=== PATIENT | female | born 1990 | race African-American/Black ===

== ENCOUNTER 2020-06-07 21:21 | Emergency (ER) | payer MEDICARE, OTHER ==
[~2020-06-07] VITALS: Ht 170.2 cm; Wt 67.3 kg
[~2020-06-07 21:21] MED LIST: CETI-89 PO; CHOL500045 PO; DIVA-85 PO; FLUT16H NASAL; FOLI-130 PO; HYDR500 PO; MULT-29 PO; QUET25TA PO; QUET50TA PO
[2020-06-07] MEDS ORDERED: MORP60TA49 PO (22:08)
[2020-06-07 22:43] LABS: EOSINOPHILS % (AUTO) 0.9 % (1.0-6.0); HEMOGLOBIN 11.6 g/dL (12.0-16.0); LYMPHOCYTES # (AUTO) 3.3 K/uL (1.0-4.8); LYMPHOCYTES % (AUTO) 33.3 % (22.0-44.0); MEAN CORPUSCULAR HEMOGLOBIN 30.1 pg (26.0-34.0); MEAN CORPUSCULAR HGB CONC 33.2 G/dL (31.0-37.0); MEAN CORPUSCULAR VOLUME 91 fL (80-100); MONOCYTES # (AUTO) 0.7 K/uL (0.1-1.0); MONOCYTES % (AUTO) 7.5 % (2.0-9.0); NEUTROPHILS # (AUTO) 5.7 K/uL (1.8-7.7); NEUTROPHILS % (AUTO) 57.3 % (40.0-70.0); PLATELET COUNT (AUTO) 304 K/uL (150-450); RED BLOOD CELL COUNT(AUTO) 3.85 MIL/uL (4.00-5.20); RED CELL DISTRIBUTION WIDTH 16.4 % (11.5-14.5); RETICULOCYTE % (AUTO) 6.6 % (0.5-2.3)
[2020-06-07 22:53] LABS: ANION GAP 7 mmol/L (8-16); CALCIUM, TOTAL 8.8 mg/dL (8.8-10.5); CARBON DIOXIDE 27 mmol/L (22-29); CHLORIDE 107 mmol/L (98-107); GLOMERULAR FILTR. RATE CALC > 60 mL/min (>60); GLUCOSE,RANDOM 91 mg/dL (70-110); POTASSIUM 3.8 mmol/L (3.5-5.1); SODIUM SERUM 141 mmol/L (136-145); UREA NITROGEN, BLOOD 10 mg/dL (7-18)
[2020-06-07] MEDS ORDERED: MORPHINE SULFATE 4 MG/ML SYRINGE IVP ONE (23:00)
[2020-06-07 23:04] LABS: COVID AG,FIA SOURCE NASOPHARYNGEAL
[2020-06-07 23:06] LABS: ALANINE AMINOTRANSFERASE 19 U/L (12-78); ALBUMIN 3.8 g/dL (3.4-5.0); ALKALINE PHOSPHATASE 79 U/L (46-116); ASPARTATE AMINOTRANSFERASE 20 U/L (15-37); BILIRUBIN,TOTAL 4.2 mg/dL (0.1-1.0); HCG,QUANTITATIVE 1 mIU/mL (0-6); TOTAL PROTEIN, SERUM 7.7 g/dL (6.4-8.2)
[2020-06-07] MEDS ORDERED: DEXTROSE 5%-0.9% SODIUM CHL 1,000 ML IV ONE (23:15)
[2020-06-07] MEDS ORDERED: DEXTROSE 5%-0.45% SODIUM CHL 1,000 ML IV ONE (23:45)
[2020-06-08] MEDS ORDERED: MORPHINE SULFATE 10 MG/ML SYRINGE IVP ONE
[2020-06-08] MEDS ORDERED: KETOROLAC TROMETHAMINE 30 MG/ML VIAL IVP ONE (00:45)
[2020-06-08 01:00] VITALS: BP 108/58
== END 2020-06-08 01:55 | disposition home or self-care (01) ==
LOC: EMS 21:22
DX: D57.00 Hb-SS disease with crisis, unspecified (principal); R19.7 Diarrhea, unspecified; F12.90 Cannabis use, unspecified, uncomplicated; F31.9 Bipolar disorder, unspecified; Z20.828 Contact with and (suspected) exposure to other viral communicable diseases
CPT/HCPCS: 36415; 80053; 84702; 85025; 85045; 87426; 96361 ×2; 96374; 96375; 96376; 99285; J1885; J2270 ×2; J7042

== ENCOUNTER 2021-05-03 13:00 | Emergency (ER) | payer MEDICARE, OTHER ==
[~2021-05-03] VITALS: Ht 170.2 cm; Wt 65.5 kg
[~2021-05-03 13:00] MED LIST changes: +MORP60TA49 PO
[2021-05-03] MEDS ORDERED: MORPHINE SULFATE 4 MG/ML SYRINGE IVP ONE (13:30)
[2021-05-03] MEDS ORDERED: SODIUM CHLORIDE 0.9% 500 ML IV ONE (13:30)
[2021-05-03 13:53] LABS: BASOPHILS % (AUTO) 1.1 % (0.0-2.0); EOSINOPHILS % (AUTO) 3.2 % (1.0-6.0); HEMATOCRIT 28.1 % (36-46); HEMOGLOBIN 9.3 g/dL (12.0-16.0); LYMPHOCYTES # (AUTO) 3.7 K/uL (1.0-4.8); LYMPHOCYTES % (AUTO) 25.8 % (22.0-44.0); MEAN CORPUSCULAR HEMOGLOBIN 29.5 pg (26.0-34.0); MEAN CORPUSCULAR VOLUME 90 fL (80-100); MONOCYTES # (AUTO) 1.4 K/uL (0.1-1.0); MONOCYTES % (AUTO) 9.7 % (2.0-9.0); NEUTROPHILS # (AUTO) 8.7 K/uL (1.8-7.7); NEUTROPHILS % (AUTO) 60.2 % (40.0-70.0); PLATELET COUNT (AUTO) 334 K/uL (150-450); RED BLOOD CELL COUNT(AUTO) 3.14 MIL/uL (4.00-5.20); RED CELL DISTRIBUTION WIDTH 17.7 % (11.5-14.5); RETICULOCYTE % (AUTO) 5.7 % (0.5-2.3)
[2021-05-03 13:57] LABS: ANION GAP 8 mmol/L (8-16); CALCIUM, TOTAL 8.6 mg/dL (8.8-10.5); CARBON DIOXIDE 28 mmol/L (22-29); CHLORIDE 106 mmol/L (98-107); CREATININE 0.96 mg/dL (0.60-1.30); GLOMERULAR FILTR. RATE CALC > 60 mL/min (>60); GLUCOSE,RANDOM 142 mg/dL (70-110); POTASSIUM 3.8 mmol/L (3.5-5.1); SODIUM SERUM 142 mmol/L (136-145); UREA NITROGEN, BLOOD 13 mg/dL (7-18)
[2021-05-03 14:07] LABS: ALANINE AMINOTRANSFERASE 29 U/L (12-78); ALBUMIN 3.4 g/dL (3.4-5.0); ALKALINE PHOSPHATASE 84 U/L (46-116); ASPARTATE AMINOTRANSFERASE 26 U/L (15-37); BILIRUBIN,TOTAL 2.3 mg/dL (0.1-1.0); HCG,QUANTITATIVE < 1 mIU/mL (0-6); TOTAL PROTEIN, SERUM 7.3 g/dL (6.4-8.2)
[2021-05-03] MEDS ORDERED: HYDROmorphone 2 MG/ML VIAL IVP ONE ×2 (14:15→15:00)
[2021-05-03] MEDS ORDERED: KETOROLAC TROMETHAMINE 30 MG/ML VIAL IVP ONE (14:15)
[2021-05-03 14:33] VITALS: BP 109/59
== END 2021-05-03 15:19 | disposition home or self-care (01) ==
LOC: EMS 13:00
DX: D57.00 Hb-SS disease with crisis, unspecified (principal); J45.909 Unspecified asthma, uncomplicated; Z88.8 Allergy status to other drugs, medicaments and biological substances; Z79.899 Other long term (current) drug therapy
CPT/HCPCS: 36415; 71045; 80053; 84702; 85025; 85045; 96374; 96375; 96376; 99284; J1170; J1885; J2270; J7040

== ENCOUNTER 2021-05-11 15:01 | Inpatient (IN) | payer MEDICARE, OTHER ==
[~2021-05-11] VITALS: Ht 170.2 cm; Wt 66.7 kg
[2021-05-11] MEDS ORDERED: ONDANSETRON HCL 4 MG/2 ML VIAL IVP ONE (16:30)
[2021-05-11] MEDS ORDERED: MORPHINE SULFATE 4 MG/ML SYRINGE IVP ONE (16:30)
[2021-05-11] MEDS ORDERED: SODIUM CHLORIDE 0.9% 1,000 ML IV ONE ×2 (16:30→19:45)
[2021-05-11 17:43] LABS: BASOPHILS % (AUTO) 1.6 % (0.0-2.0); EOSINOPHILS % (AUTO) 3.2 % (1.0-6.0); HEMATOCRIT 30.2 % (36-46); LYMPHOCYTES # (AUTO) 2.6 K/uL (1.0-4.8); LYMPHOCYTES % (AUTO) 28.9 % (22.0-44.0); MEAN CORPUSCULAR HEMOGLOBIN 30.2 pg (26.0-34.0); MEAN CORPUSCULAR HGB CONC 33.3 G/dL (31.0-37.0); MEAN CORPUSCULAR VOLUME 91 fL (80-100); MONOCYTES % (AUTO) 11.3 % (2.0-9.0); PLATELET COUNT (AUTO) 314 K/uL (150-450); RED BLOOD CELL COUNT(AUTO) 3.32 MIL/uL (4.00-5.20); RED CELL DISTRIBUTION WIDTH 17.2 % (11.5-14.5)
[2021-05-11 17:47] LABS: ANION GAP 6 mmol/L (8-16); CALCIUM, TOTAL 8.8 mg/dL (8.8-10.5); CARBON DIOXIDE 31 mmol/L (22-29); CHLORIDE 105 mmol/L (98-107); CREATININE 0.79 mg/dL (0.60-1.30); GLOMERULAR FILTR. RATE CALC > 60 mL/min (>60); GLUCOSE,RANDOM 107 mg/dL (70-110); POTASSIUM 3.9 mmol/L (3.5-5.1); SODIUM SERUM 142 mmol/L (136-145); UREA NITROGEN, BLOOD 6 mg/dL (7-18)
[2021-05-11 17:58] LABS: ALANINE AMINOTRANSFERASE 33 U/L (12-78); ALBUMIN 3.3 g/dL (3.4-5.0); ALKALINE PHOSPHATASE 81 U/L (46-116); ASPARTATE AMINOTRANSFERASE 36 U/L (15-37); HCG,QUANTITATIVE < 1 mIU/mL (0-6); TOTAL PROTEIN, SERUM 7.3 g/dL (6.4-8.2)
[2021-05-11 18:04] LABS: BAND NEUTROPHILS % (MANUAL) 1 % (0-5); LYMPHOCYTES % (MANUAL) 31 % (22-44); MONOCYTES % (MANUAL) 9 % (2-9); SEGMENTED NEUTROPHILS % 59 % (40-70)
[2021-05-11 18:06] LABS: PROTHROMBIN TIME 10.9 SEC (9.4-11.6)
[2021-05-11 18:34] LABS: RETICULOCYTE % (AUTO) 13.1 % (0.5-2.3)
[2021-05-11] MEDS ORDERED: HYDROmorphone 2 MG/ML VIAL IVP ONE (19:45)
[2021-05-11] MEDS ORDERED: ONDANSETRON HCL 4 MG/2 ML VIAL IVP PRN (20:00)
[2021-05-11] MEDS ORDERED: ACETAMINOPHEN 325 MG TABLET PO PRN (20:00)
[2021-05-11] MEDS ORDERED: HYDROmorphone 2 MG/ML VIAL IVP PRN (20:00)
[2021-05-11 20:42] LABS: APPEARANCE,URINE CLEAR (CLEAR); BILIRUBIN,URINE NEGATIVE (NEGATIVE); GLUCOSE, URINE (UA) NEGATIVE (NEGATIVE); KETONES,URINE NEGATIVE (NEGATIVE); LEUKOCYTE ESTERASE ,URINE NEGATIVE (NEGATIVE); NITRATE,URINE NEGATIVE (NEGATIVE); OCCULT BLOOD,URINE NEGATIVE (NEGATIVE); PROTEIN,URINE NEGATIVE (NEGATIVE)
[2021-05-11] MEDS: RINGERS SOLUTION,LACTATED 1,000 ML IV SCH (21:08)
[2021-05-11 22:17] LABS: COVID AG,FIA SOURCE NASOPHARYNGEAL
[2021-05-11] MEDS ORDERED: MORPHINE IR 30 MG PO (22:21)
[2021-05-11] MEDS ORDERED: [UNRECOGNIZED DRUG - OTHER] PO (22:21)
[2021-05-11] MEDS ORDERED: SENN-277 PO (22:21)
[2021-05-11] MEDS ORDERED: GLUT5POW PO (22:21)
[2021-05-11] MEDS ORDERED: OLAN10TA74 PO (22:21)
[2021-05-11] MEDS ORDERED: ALBU8HFA IH (22:21)
[2021-05-11] MEDS ORDERED: NALO4SPR NASAL (22:21)
[2021-05-11] MEDS ORDERED: LITH300C3 PO (22:21)
[2021-05-11] MEDS ORDERED: MELA1TAB52 PO (22:24)
[2021-05-11] MEDS ORDERED: DOCUSATE SODIUM 100 MG CAPSULE PO PRN (22:30)
[2021-05-11] MEDS ORDERED: MISC MED-CONVERTED FROM AMBULATORY (Naloxone HCl (Narcan) 1 SPRAY) NASAL PRN (22:30)
[2021-05-11] MEDS ORDERED: SENNA 187 MG TABLET PO PRN (22:30)
[2021-05-11] MEDS ORDERED: ALBUTEROL SULFATE HFA 90 MCG/PUFF 8 GM INHALER IH PRN (22:30)
[2021-05-11] MEDS ORDERED: GLUTAMINE 5 GM PO SCH (22:30)
[2021-05-11] MEDS: MELATONIN 5 MG TABLET PO SCH (22:30)
[2021-05-11 23:25] VITALS: BP 111/63
[2021-05-11] MEDS: HEPARIN SODIUM,PORCINE 5,000 UNITS/ML VIAL SQ SCH (23:42)
[2021-05-12] MEDS ORDERED: HYDROmorphone 2 MG/ML VIAL IVP PRN
[2021-05-12] MEDS: OLANZapine 10 MG TABLET PO SCH ×2 (00:22→20:59)
[2021-05-12] MEDS ORDERED: HYDROmorphone 2 MG/ML VIAL IVP ONE (02:15)
[2021-05-12] MEDS: RINGERS SOLUTION,LACTATED 1,000 ML IV SCH ×4 (03:22→22:44)
[2021-05-12 05:09] VITALS: BP 101/44
[2021-05-12 06:03] LABS: BASOPHILS % (AUTO) 1.1 % (0.0-2.0); EOSINOPHILS % (AUTO) 3.5 % (1.0-6.0); HEMATOCRIT 28.6 % (36-46); HEMOGLOBIN 9.5 g/dL (12.0-16.0); LYMPHOCYTES # (AUTO) 2.7 K/uL (1.0-4.8); LYMPHOCYTES % (AUTO) 30.1 % (22.0-44.0); MEAN CORPUSCULAR HEMOGLOBIN 30.5 pg (26.0-34.0); MEAN CORPUSCULAR HGB CONC 33.2 G/dL (31.0-37.0); MEAN CORPUSCULAR VOLUME 92 fL (80-100); MONOCYTES # (AUTO) 0.8 K/uL (0.1-1.0); MONOCYTES % (AUTO) 9.4 % (2.0-9.0); NEUTROPHILS % (AUTO) 55.9 % (40.0-70.0); PLATELET COUNT (AUTO) 318 K/uL (150-450); RED BLOOD CELL COUNT(AUTO) 3.11 MIL/uL (4.00-5.20); RED CELL DISTRIBUTION WIDTH 17.1 % (11.5-14.5)
[2021-05-12 06:42] LABS: ANION GAP 5 mmol/L (8-16); CALCIUM, TOTAL 8.5 mg/dL (8.8-10.5); CARBON DIOXIDE 30 mmol/L (22-29); CHLORIDE 110 mmol/L (98-107); CREATININE 0.94 mg/dL (0.60-1.30); GLOMERULAR FILTR. RATE CALC > 60 mL/min (>60); GLUCOSE,RANDOM 108 mg/dL (70-110); POTASSIUM 4.1 mmol/L (3.5-5.1); SODIUM SERUM 145 mmol/L (136-145); UREA NITROGEN, BLOOD 7 mg/dL (7-18)
[2021-05-12] MEDS ORDERED: NORETHINDRONE 0.35 MG TABLET PO SCH (07:00)
[2021-05-12 07:12] VITALS: BP 110/40
[2021-05-12] MEDS: HEPARIN SODIUM,PORCINE 5,000 UNITS/ML VIAL SQ SCH ×4 (09:11→23:44)
[2021-05-12] MEDS: FOLIC ACID 1 MG TABLET PO SCH (09:11)
[2021-05-12] MEDS ORDERED: LITHIUM CARBONATE 600 MG CAPSULE PO SCH (21:00)
[2021-05-12] MEDS: MELATONIN 5 MG TABLET PO SCH (21:00)
[2021-05-13] MEDS: RINGERS SOLUTION,LACTATED 1,000 ML IV SCH (05:30)
[2021-05-13 06:01] VITALS: BP 93/53
[2021-05-13 07:14] VITALS: BP 98/56
[2021-05-13] MEDS: HEPARIN SODIUM,PORCINE 5,000 UNITS/ML VIAL SQ SCH (08:00)
[2021-05-13] MEDS: FOLIC ACID 1 MG TABLET PO SCH (09:59)
[2021-05-13 11:37] VITALS: BP 98/60
== END 2021-05-13 13:40 | disposition home or self-care (01) | DRG 812 ==
LOC: EMS 15:07 → 5S 22:00
PROVIDERS: ADMIT Internal Medicine; ATTEND Internal Medicine
DX: D57.00 Hb-SS disease with crisis, unspecified (principal); E87.3 Alkalosis; F31.9 Bipolar disorder, unspecified; E80.6 Other disorders of bilirubin metabolism; J45.909 Unspecified asthma, uncomplicated; Z20.822 Contact with and (suspected) exposure to COVID-19; Z79.891 Long term (current) use of opiate analgesic; Z86.718 Personal history of other venous thrombosis and embolism; Z88.8 Allergy status to other drugs, medicaments and biological substances; Z90.49 Acquired absence of other specified parts of digestive tract
CPT/HCPCS: 71045; 80048; 80053; 80178; 81003; 83010; 83605; 83735; 83880; 84702; 85007; 85025; 85045; 85610; 85730; 93005; 93925; 93970; 99285; J1170; J1644; J2270; J2405; J7030; J7120; Q9967; 36415-L1; 36415-TC

== ENCOUNTER 2021-05-31 19:45 | Inpatient (IN) | payer MEDICARE, OTHER ==
[~2021-05-31] VITALS: Ht 170.2 cm; Wt 68.2 kg
[~2021-05-31 19:45] MED LIST changes: +ALBU8HFA IH; -CETI-89 PO; -CHOL500045 PO; -DIVA-85 PO; -FLUT16H NASAL; +GLUT5POW PO; -HYDR500 PO; +LITH300C3 PO; +MELA1TAB52 PO; -MORP60TA49 PO; +MORPHINE IR 30 MG PO; -MULT-29 PO; +NALO4SPR NASAL; +OLAN10TA74 PO; -QUET25TA PO; -QUET50TA PO; +SENN-277 PO; +[UNRECOGNIZED DRUG - OTHER] PO
[2021-05-31] MEDS ORDERED: SODIUM CHLORIDE 0.9% 1,000 ML IV ONE ×2 (20:15→22:15)
[2021-05-31 20:51] LABS: COVID AG,FIA SOURCE NASOPHARYNGEAL
[2021-05-31 20:52] LABS: BASOPHILS % (AUTO) 0.8 % (0.0-2.0); EOSINOPHILS % (AUTO) 0.2 % (1.0-6.0); HEMOGLOBIN 10.4 g/dL (12.0-16.0); LYMPHOCYTES # (AUTO) 2.8 K/uL (1.0-4.8); MEAN CORPUSCULAR HEMOGLOBIN 28.7 pg (26.0-34.0); MEAN CORPUSCULAR HGB CONC 32.5 G/dL (31.0-37.0); MEAN CORPUSCULAR VOLUME 88 fL (80-100); MONOCYTES # (AUTO) 0.8 K/uL (0.1-1.0); MONOCYTES % (AUTO) 6.8 % (2.0-9.0); NEUTROPHILS # (AUTO) 8.4 K/uL (1.8-7.7); NEUTROPHILS % (AUTO) 69.2 % (40.0-70.0); PLATELET COUNT (AUTO) 333 K/uL (150-450); RED BLOOD CELL COUNT(AUTO) 3.62 MIL/uL (4.00-5.20); RED CELL DISTRIBUTION WIDTH 15.9 % (11.5-14.5); RETICULOCYTE % (AUTO) 3.9 % (0.5-2.3)
[2021-05-31 21:10] LABS: ANION GAP 6 mmol/L (8-16); CALCIUM, TOTAL 8.9 mg/dL (8.8-10.5); CARBON DIOXIDE 29 mmol/L (22-29); CHLORIDE 106 mmol/L (98-107); CREATININE 0.79 mg/dL (0.60-1.30); GLOMERULAR FILTR. RATE CALC > 60 mL/min (>60); GLUCOSE,RANDOM 86 mg/dL (70-110); POTASSIUM 3.9 mmol/L (3.5-5.1); SODIUM SERUM 141 mmol/L (136-145); UREA NITROGEN, BLOOD 8 mg/dL (7-18)
[2021-05-31 21:12] LABS: INR 1.1 (0.9-1.1); PROTHROMBIN TIME 11.5 SEC (9.4-11.6)
[2021-05-31 21:21] LABS: ALANINE AMINOTRANSFERASE 29 U/L (12-78); ALBUMIN 3.6 g/dL (3.4-5.0); ALKALINE PHOSPHATASE 69 U/L (46-116); ASPARTATE AMINOTRANSFERASE 24 U/L (15-37); BILIRUBIN,TOTAL 1.8 mg/dL (0.1-1.0); CREATINE KINASE, TOTAL ONLY 61 U/L (26-192); HCG,QUANTITATIVE < 1 mIU/mL (0-6); TOTAL PROTEIN, SERUM 7.7 g/dL (6.4-8.2)
[2021-05-31 21:22] LABS: B-TYPE NATRIURETIC PEPTIDE 121 pg/mL (0-100)
[2021-05-31] MEDS ORDERED: ONDANSETRON HCL 4 MG/2 ML VIAL IVP ONE (21:45)
[2021-05-31] MEDS ORDERED: MORPHINE SULFATE 4 MG/ML SYRINGE IVP ONE (21:45)
[2021-05-31] MEDS ORDERED: ALBUTEROL SULFATE 2.5 MG/0.5 ML NEB SOLUTION NEB PRN (22:15)
[2021-05-31] MEDS ORDERED: ONDANSETRON HCL 4 MG/2 ML VIAL IVP PRN (22:15)
[2021-05-31] MEDS ORDERED: ZOLPIDEM TARTRATE 5 MG TABLET PO PRN (22:15)
[2021-05-31] MEDS ORDERED: ACETAMINOPHEN 325 MG TABLET PO PRN (22:15)
[2021-05-31 22:37] LABS: LITHIUM < 0.20 mmol/L (0.60-1.20)
[2021-05-31 22:53] LABS: THYROID STIMULATING HORMONE 0.38 uIU/mL (0.36-3.74)
[2021-05-31] MEDS: SODIUM CHLORIDE 0.9% 1,000 ML IV SCH (22:55)
[2021-05-31] MEDS: FOLIC ACID 1 MG TABLET PO SCH (22:57)
[2021-05-31] MEDS: HEPARIN SODIUM,PORCINE 5,000 UNITS/ML VIAL SQ SCH (23:41)
[2021-06-01] MEDS: MORPHINE SULFATE 2 MG/ML SYRINGE IVP PRN ×7 (01:01→21:06)
[2021-06-01 01:14] VITALS: BP 92/42
[2021-06-01] MEDS: SODIUM CHLORIDE 0.9% 1,000 ML IV SCH ×3 (05:59→18:22)
[2021-06-01 07:13] VITALS: BP 105/54
[2021-06-01] MEDS: FOLIC ACID 1 MG TABLET PO SCH ×2 (07:45→21:01)
[2021-06-01] MEDS: DOCUSATE SODIUM 100 MG CAPSULE PO SCH ×2 (07:45→20:49)
[2021-06-01] MEDS: FAMOTIDINE 20 MG TABLET PO SCH ×2 (07:46→21:01)
[2021-06-01] MEDS: HEPARIN SODIUM,PORCINE 5,000 UNITS/ML VIAL SQ SCH ×4 (07:46→23:53)
[2021-06-01 11:01] VITALS: BP 102/58
[2021-06-01 15:14] VITALS: BP 104/63
[2021-06-01 20:20] VITALS: BP 96/49
[2021-06-01] MEDS: LITHIUM CARBONATE 600 MG CAPSULE PO SCH (21:01)
[2021-06-01] MEDS: OLANZapine 10 MG TABLET PO SCH (21:01)
[2021-06-01 23:58] VITALS: BP 107/54
[2021-06-02] MEDS: SODIUM CHLORIDE 0.9% 1,000 ML IV SCH ×4 (02:38→20:16)
[2021-06-02] MEDS: MORPHINE SULFATE 2 MG/ML SYRINGE IVP PRN (04:36)
[2021-06-02 07:17] VITALS: BP 127/73
[2021-06-02] MEDS: DOCUSATE SODIUM 100 MG CAPSULE PO SCH ×2 (09:06→20:17)
[2021-06-02] MEDS: FOLIC ACID 1 MG TABLET PO SCH ×2 (09:06→20:17)
[2021-06-02] MEDS: HEPARIN SODIUM,PORCINE 5,000 UNITS/ML VIAL SQ SCH (09:06)
[2021-06-02] MEDS: FAMOTIDINE 20 MG TABLET PO SCH ×2 (09:06→20:17)
[2021-06-02] MEDS: ENOXAPARIN SODIUM 30 MG/0.3 ML PF SYRINGE SQ SCH (09:30)
[2021-06-02 11:07] VITALS: BP 116/78
[2021-06-02] MEDS: HYDROmorphone 2 MG/ML VIAL IVP PRN ×3 (11:46→22:18)
[2021-06-02 15:01] VITALS: BP 114/58
[2021-06-02 19:40] VITALS: BP 99/48
[2021-06-02] MEDS: LITHIUM CARBONATE 600 MG CAPSULE PO SCH (20:16)
[2021-06-02] MEDS: OLANZapine 10 MG TABLET PO SCH (20:17)
[2021-06-02 23:42] VITALS: BP 96/49
[2021-06-03] MEDS: SODIUM CHLORIDE 0.9% 1,000 ML IV SCH ×3 (03:23→16:06)
[2021-06-03] MEDS: HYDROmorphone 2 MG/ML VIAL IVP PRN ×4 (03:37→21:55)
[2021-06-03 04:34] VITALS: BP 100/52
[2021-06-03 07:18] VITALS: BP 108/40
[2021-06-03 07:38] LABS: BASOPHILS % (AUTO) 0.9 % (0.0-2.0); EOSINOPHILS % (AUTO) 3.3 % (1.0-6.0); HEMATOCRIT 24.6 % (36-46); LYMPHOCYTES % (AUTO) 35.2 % (22.0-44.0); MEAN CORPUSCULAR HEMOGLOBIN 29.2 pg (26.0-34.0); MEAN CORPUSCULAR HGB CONC 32.7 G/dL (31.0-37.0); MEAN CORPUSCULAR VOLUME 89 fL (80-100); MONOCYTES # (AUTO) 0.9 K/uL (0.1-1.0); MONOCYTES % (AUTO) 11.2 % (2.0-9.0); NEUTROPHILS # (AUTO) 4.2 K/uL (1.8-7.7); NEUTROPHILS % (AUTO) 49.4 % (40.0-70.0); PLATELET COUNT (AUTO) 218 K/uL (150-450); RED BLOOD CELL COUNT(AUTO) 2.76 MIL/uL (4.00-5.20); RED CELL DISTRIBUTION WIDTH 15.3 % (11.5-14.5)
[2021-06-03 07:47] LABS: ANION GAP 5 mmol/L (8-16); CALCIUM, TOTAL 6.3 mg/dL (8.8-10.5); CARBON DIOXIDE 22 mmol/L (22-29); CHLORIDE 118 mmol/L (98-107); CREATININE 0.58 mg/dL (0.60-1.30); GLOMERULAR FILTR. RATE CALC > 60 mL/min (>60); GLUCOSE,RANDOM 61 mg/dL (70-110); SODIUM SERUM 145 mmol/L (136-145); UREA NITROGEN, BLOOD 6 mg/dL (7-18)
[2021-06-03 07:51] LABS: POTASSIUM 2.6 mmol/L (3.5-5.1)
[2021-06-03] MEDS ORDERED: POTASSIUM CHLORIDE 20 MEQ ER TABLET PO ONE (08:15)
[2021-06-03] MEDS ORDERED: POTASSIUM CHLORIDE 20 MEQ ER TABLET PO PRN (08:15)
[2021-06-03] MEDS: ENOXAPARIN SODIUM 30 MG/0.3 ML PF SYRINGE SQ SCH (08:33)
[2021-06-03] MEDS: DOCUSATE SODIUM 100 MG CAPSULE PO SCH ×2 (08:33→21:48)
[2021-06-03] MEDS: FOLIC ACID 1 MG TABLET PO SCH ×2 (08:34→21:49)
[2021-06-03] MEDS: FAMOTIDINE 20 MG TABLET PO SCH ×2 (08:35→21:49)
[2021-06-03] MEDS: POTASSIUM CHL 10 MEQ/WATER 50 ML IV PRN ×4 (10:18→13:21)
[2021-06-03 11:05] VITALS: BP 94/49
[2021-06-03] MEDS ORDERED: MAGNESIUM OXIDE 400 MG TABLET PO PRN (11:30)
[2021-06-03] MEDS ORDERED: MAGNESIUM SULFATE 4 GM/WATER 100 ML IV PRN (11:30)
[2021-06-03] MEDS ORDERED: MAGNESIUM SULFATE 2 GM/WATER 50 ML IV PRN (11:30)
[2021-06-03] MEDS: HYDROCODONE/ACETAMINOPHEN 5-325 MG TABLET PO PRN (12:23)
[2021-06-03 15:14] VITALS: BP 96/45
[2021-06-03 19:38] VITALS: BP 94/47
[2021-06-03 21:40] VITALS: BP 96/44
[2021-06-03] MEDS: LITHIUM CARBONATE 600 MG CAPSULE PO SCH (21:49)
[2021-06-03] MEDS: OLANZapine 10 MG TABLET PO SCH (21:55)
[2021-06-04 00:02] VITALS: BP 110/51
[2021-06-04] MEDS: SODIUM CHLORIDE 0.9% 1,000 ML IV SCH ×3 (01:02→16:00)
[2021-06-04] MEDS: HYDROmorphone 2 MG/ML VIAL IVP PRN ×3 (02:46→14:19)
[2021-06-04 02:48] VITALS: BP 106/47
[2021-06-04 07:17] VITALS: BP 114/61
[2021-06-04] MEDS: DOCUSATE SODIUM 100 MG CAPSULE PO SCH (08:17)
[2021-06-04] MEDS: FAMOTIDINE 20 MG TABLET PO SCH (08:17)
[2021-06-04] MEDS: FOLIC ACID 1 MG TABLET PO SCH (08:17)
[2021-06-04] MEDS: ENOXAPARIN SODIUM 30 MG/0.3 ML PF SYRINGE SQ SCH (08:17)
[2021-06-04 11:17] VITALS: BP 119/33
[2021-06-04] MEDS: HYDROCODONE/ACETAMINOPHEN 5-325 MG TABLET PO PRN (17:27)
== END 2021-06-04 18:20 | disposition home or self-care (01) | DRG 812 ==
LOC: EMS 19:46 → 5S 22:00
PROVIDERS: ADMIT Internal Medicine; ATTEND Internal Medicine
DX: D57.00 Hb-SS disease with crisis, unspecified (principal); G89.29 Other chronic pain; R00.1 Bradycardia, unspecified; E87.6 Hypokalemia; J45.909 Unspecified asthma, uncomplicated; Z20.822 Contact with and (suspected) exposure to COVID-19; I95.9 Hypotension, unspecified; Z88.8 Allergy status to other drugs, medicaments and biological substances; Z90.49 Acquired absence of other specified parts of digestive tract
CPT/HCPCS: 71045; 80048; 80053; 80178; 82550; 83735; 83880; 84132; 84443; 84484; 84702; 85025; 85045; 85610; 85730; 93005; 93306; 99285; J1170; J1644; J1650; J2270; J2405; J3475; J3480; J7030; 36415-L1; 36415-TC

== ENCOUNTER 2022-05-30 21:09 | Emergency (ER) | payer MEDICARE, OTHER ==
[~2022-05-30] VITALS: Ht 170.2 cm; Wt 77.3 kg
[~2022-05-30 21:09] MED LIST changes: -ALBU8HFA IH; -GLUT5POW PO; -MELA1TAB52 PO; -NALO4SPR NASAL; -SENN-277 PO; -[UNRECOGNIZED DRUG - OTHER] PO
[2022-05-31] MEDS ORDERED: SODIUM CHLORIDE 0.9% 1,000 ML IV ONE (02:15)
[2022-05-31] MEDS ORDERED: HYDROmorphone HCL 2 MG/ML SYRINGE IVP ONE (04:45)
[2022-05-31] MEDS ORDERED: ONDANSETRON HCL 4 MG/2 ML VIAL IVP ONE (04:45)
[2022-05-31 04:58] LABS: BASOPHILS % (AUTO) 0.7 % (0.0-2.0); EOSINOPHILS % (AUTO) 5.7 % (1.0-6.0); HEMATOCRIT 33.4 % (36-46); HEMOGLOBIN 10.9 g/dL (12.0-16.0); LYMPHOCYTES # (AUTO) 3.3 K/uL (1.0-4.8); LYMPHOCYTES % (AUTO) 25.7 % (22.0-44.0); MEAN CORPUSCULAR HEMOGLOBIN 29.6 pg (26.0-34.0); MEAN CORPUSCULAR HGB CONC 32.7 G/dL (31.0-37.0); MEAN CORPUSCULAR VOLUME 91 fL (80-100); MONOCYTES % (AUTO) 7.7 % (2.0-9.0); NEUTROPHILS # (AUTO) 7.7 K/uL (1.8-7.7); NEUTROPHILS % (AUTO) 60.2 % (40.0-70.0); PLATELET COUNT (AUTO) 287 K/uL (150-450); RED BLOOD CELL COUNT(AUTO) 3.68 MIL/uL (4.00-5.20); RED CELL DISTRIBUTION WIDTH 15.1 % (11.5-14.5); RETICULOCYTE % (AUTO) 4.5 % (0.5-2.3)
[2022-05-31 05:03] LABS: ANION GAP 7 mmol/L (8-16); CALCIUM, TOTAL 8.8 mg/dL (8.8-10.5); CARBON DIOXIDE 25 mmol/L (22-29); CHLORIDE 104 mmol/L (98-107); CREATININE 0.71 mg/dL (0.60-1.30); GLUCOSE,RANDOM 93 mg/dL (70-110); POTASSIUM 3.6 mmol/L (3.5-5.1); SODIUM SERUM 136 mmol/L (136-145); UREA NITROGEN, BLOOD 6 mg/dL (7-18)
[2022-05-31 05:06] LABS: GLOMERULAR FILTR. RATE CALC > 60 mL/min (>60)
[2022-05-31 05:09] LABS: ALANINE AMINOTRANSFERASE 15 U/L (12-78); ALBUMIN 3.8 g/dL (3.4-5.0); ALKALINE PHOSPHATASE 62 U/L (46-116); ASPARTATE AMINOTRANSFERASE 13 U/L (15-37); BILIRUBIN,TOTAL 2.6 mg/dL (0.1-1.0); CREATINE KINASE, TOTAL ONLY 60 U/L (26-192); HCG,QUANTITATIVE 42 mIU/mL (0-6); TOTAL PROTEIN, SERUM 7.5 g/dL (6.4-8.2)
[2022-05-31 05:15] LABS: PROTHROMBIN TIME 11.1 SEC (9.4-11.6)
[2022-05-31 05:21] LABS: LITHIUM < 0.20 mmol/L (0.60-1.20)
[2022-05-31 05:25] LABS: B-TYPE NATRIURETIC PEPTIDE 15 pg/mL (0-100)
[2022-05-31 05:30] LABS: PLATELET MORPHOLOGY COMMENT LARGE PLTS PRESENT
[2022-05-31 06:42] VITALS: BP 112/64
== END 2022-05-31 07:03 | disposition left against medical advice (07) ==
LOC: EMS 21:10
DX: D57.1 Sickle-cell disease without crisis (principal); Z88.6 Allergy status to analgesic agent
CPT/HCPCS: 99285; 80053; 80178; 82550; 83880; 84484; 84702; 85025; 85045; 85610; 85730; 36415; 96374; 71045; 96361; 96375; 93005; J1170; J2405; J7030

== ENCOUNTER 2023-06-05 15:50 | Emergency (ER) | payer MEDICARE, OTHER ==
[~2023-06-05] VITALS: Ht 170.2 cm; Wt 74.5 kg
[2023-06-05] MEDS ORDERED: SODIUM CHLORIDE 0.9% 1,000 ML IV ONE (16:15)
[2023-06-05 16:33] LABS: LYMPHOCYTES # (AUTO) 4.1 K/uL (1.0-4.8)
[2023-06-05 16:42] LABS: ANION GAP 5 mmol/L (8-16); CALCIUM, TOTAL 8.6 mg/dL (8.8-10.5); CARBON DIOXIDE 27 mmol/L (22-29); CHLORIDE 106 mmol/L (98-107); CREATININE 0.83 mg/dL (0.60-1.30); GLOMERULAR FILTR. RATE CALC > 60 mL/min (>60); GLUCOSE,RANDOM 103 mg/dL (70-110); POTASSIUM 3.5 mmol/L (3.5-5.1); SODIUM SERUM 138 mmol/L (136-145); UREA NITROGEN, BLOOD 7 mg/dL (7-18)
[2023-06-05 16:44] LABS: BASOPHILS % (AUTO) 0.4 % (0.0-2.0); EOSINOPHILS % (AUTO) 8.1 % (1.0-6.0); HEMATOCRIT 27.7 % (36-46); HEMOGLOBIN 9.6 g/dL (12.0-16.0); LYMPHOCYTES % (AUTO) 37.3 % (22.0-44.0); MEAN CORPUSCULAR HEMOGLOBIN 31.6 pg (26.0-34.0); MEAN CORPUSCULAR HGB CONC 34.5 G/dL (31.0-37.0); MEAN CORPUSCULAR VOLUME 92 fL (80-100); MONOCYTES # (AUTO) 0.9 K/uL (0.1-1.0); MONOCYTES % (AUTO) 7.7 % (2.0-9.0); NEUTROPHILS # (AUTO) 5.1 K/uL (1.8-7.7); NEUTROPHILS % (AUTO) 46.5 % (40.0-70.0); PLATELET COUNT (AUTO) 378 K/uL (150-450); RED BLOOD CELL COUNT(AUTO) 3.03 MIL/uL (4.00-5.20); RED CELL DISTRIBUTION WIDTH 19.5 % (11.5-14.5); RETICULOCYTE % (AUTO) 8.5 % (0.5-2.3); WHITE BLOOD COUNT (AUTO) 11.1 K/uL (4.5-11.0)
[2023-06-05 16:56] LABS: ALANINE AMINOTRANSFERASE 21 U/L (12-78); ALBUMIN 3.9 g/dL (3.4-5.0); ALKALINE PHOSPHATASE 74 U/L (46-116); ASPARTATE AMINOTRANSFERASE 17 U/L (15-37); BILIRUBIN,TOTAL 5.3 mg/dL (0.1-1.0); HCG,QUANTITATIVE < 1 mIU/mL (0-6); LIPASE 29 U/L (16-77); TOTAL PROTEIN, SERUM 7.9 g/dL (6.4-8.2)
[2023-06-05 17:20] LABS: RBC MORPHOLOGY COMMENT ABNORMAL RBC MORPH
[2023-06-05 17:22] LABS: PLATELET MORPHOLOGY COMMENT GIANT PLTS PRESENT
[2023-06-05] MEDS ORDERED: DiphenhydrAMINE HCL 50 MG/ML VIAL IVP ONE (17:30)
[2023-06-05] MEDS ORDERED: MORPHINE SULFATE 4 MG/ML SYRINGE IVP ONE (17:30)
[2023-06-05] MEDS ORDERED: KETOROLAC TROMETHAMINE 30 MG/ML VIAL IVP ONE (18:45)
[2023-06-05 18:55] VITALS: BP 107/59; PULSE 84; RESP 16; TEMP 98.3
[2023-06-05 19:31] LABS: APPEARANCE,URINE CLEAR (CLEAR); BILIRUBIN,URINE NEGATIVE (NEGATIVE); COLOR,URINE LIGHT YELLOW (YELLOW); GLUCOSE, URINE (UA) NEGATIVE (NEGATIVE); KETONES,URINE NEGATIVE (NEGATIVE); LEUKOCYTE ESTERASE ,URINE NEGATIVE (NEGATIVE); NITRATE,URINE NEGATIVE (NEGATIVE); OCCULT BLOOD,URINE SMALL (NEGATIVE); PROTEIN,URINE NEGATIVE (NEGATIVE); SPECIFIC GRAVITIY, URINE 1.011 (1.003-1.030); UROBILINOGEN,URINE <=1.0 mg/dL (<=1.0)
[2023-06-05 19:56] LABS: SQUAMOUS EPITHELIAL CELL,UR Few /LPF (None Seen)
[2023-06-05 19:57] LABS: BACTERIA,URINE None Seen /HPF (None Seen); RBC,URINE 0-2 /HPF (0-2); WBC,URINE 0-2 /HPF (0-5)
== END 2023-06-05 18:57 | disposition left against medical advice (07) ==
LOC: EMS 18:17
DX: D57.00 Hb-SS disease with crisis, unspecified (principal); J45.909 Unspecified asthma, uncomplicated; Z90.49 Acquired absence of other specified parts of digestive tract; Z88.8 Allergy status to other drugs, medicaments and biological substances
CPT/HCPCS: 99284; 96374; 96375; 96361; 80053; 81001; 83690; 84702; 85025; 85045; 36415; J1200; J1885; J2270; J7030

== ENCOUNTER 2023-08-18 20:22 | Emergency (ER) | payer MEDICARE, OTHER ==
[~2023-08-18] VITALS: Ht 170.2 cm; Wt 78.0 kg
[~2023-08-18 20:22] MED LIST changes: +BUPR1FIL SL; +GABA600T10 PO; -LITH300C3 PO; -MORPHINE IR 30 MG PO; -OLAN10TA74 PO
[2023-08-18 20:33] VITALS: TEMP 98.2
[2023-08-18] MEDS: DiphenhydrAMINE HCL 50 MG/ML VIAL IVP ONE (22:52)
[2023-08-18] MEDS: MORPHINE SULFATE 10 MG/ML VIAL IVP ONE (22:54)
[2023-08-18] MEDS: SODIUM CHLORIDE 0.9% 1,000 ML IV ONE (22:54)
[2023-08-18 23:07] LABS: ANION GAP 11 mmol/L (8-16); CALCIUM, TOTAL 9.2 mg/dL (8.8-10.5); CARBON DIOXIDE 25 mmol/L (22-29); CHLORIDE 102 mmol/L (98-107); CREATININE 0.86 mg/dL (0.60-1.30); GLOMERULAR FILTR. RATE CALC > 60 mL/min (>60); GLUCOSE,RANDOM 86 mg/dL (70-110); LYMPHOCYTES # (AUTO) 4.3 K/uL (1.0-4.8); MEAN CORPUSCULAR VOLUME 91 fL (80-100); POTASSIUM 3.9 mmol/L (3.5-5.1); RETICULOCYTE % (AUTO) 8.7 % (0.5-2.3); SODIUM SERUM 138 mmol/L (136-145); UREA NITROGEN, BLOOD 12 mg/dL (7-18); WHITE BLOOD COUNT (AUTO) 13.7 K/uL (4.5-11.0)
[2023-08-18 23:11] LABS: BASOPHILS % (AUTO) 0.8 % (0.0-2.0); EOSINOPHILS % (AUTO) 5.2 % (1.0-6.0); HEMATOCRIT 26.9 % (36-46); INR 1.1 (0.9-1.1); LYMPHOCYTES % (AUTO) 31.6 % (22.0-44.0); MEAN CORPUSCULAR HEMOGLOBIN 30.3 pg (26.0-34.0); MEAN CORPUSCULAR HGB CONC 33.4 G/dL (31.0-37.0); MONOCYTES # (AUTO) 1.1 K/uL (0.1-1.0); MONOCYTES % (AUTO) 7.8 % (2.0-9.0); NEUTROPHILS # (AUTO) 7.5 K/uL (1.8-7.7); NEUTROPHILS % (AUTO) 54.6 % (40.0-70.0); PLATELET COUNT (AUTO) 384 K/uL (150-450); RED BLOOD CELL COUNT(AUTO) 2.97 MIL/uL (4.00-5.20); RED CELL DISTRIBUTION WIDTH 18.3 % (11.5-14.5)
[2023-08-18 23:13] LABS: ALANINE AMINOTRANSFERASE 36 U/L (12-78); ALBUMIN 4.4 g/dL (3.4-5.0); ALKALINE PHOSPHATASE 104 U/L (46-116); ASPARTATE AMINOTRANSFERASE 31 U/L (15-37); BILIRUBIN,TOTAL 5.2 mg/dL (0.1-1.0); CREATINE KINASE, TOTAL ONLY 74 U/L (26-192); TOTAL PROTEIN, SERUM 8.3 g/dL (6.4-8.2)
[2023-08-18 23:44] LABS: TROPONIN I-HIGH SENSITIVITY 6 ng/L (<51)
[2023-08-18] MEDS ORDERED: ACETAMINOPHEN 325 MG TABLET PO PRN ×2 (23:45)
[2023-08-18] MEDS ORDERED: MORPHINE SULFATE 10 MG/ML VIAL IVP PRN (23:45)
[2023-08-18] MEDS ORDERED: DiphenhydrAMINE HCL 50 MG/ML VIAL IVP PRN (23:45)
[2023-08-19 00:07] VITALS: BP 133/78; PULSE 102; RESP 20
[2023-08-19] MEDS ORDERED: MORPHINE SULFATE 2 MG/ML SYRINGE IVP ONE (00:30)
== END 2023-08-19 01:04 | disposition left against medical advice (07) ==
LOC: EMS 20:24
DX: D57.00 Hb-SS disease with crisis, unspecified (principal); J45.909 Unspecified asthma, uncomplicated; Z90.49 Acquired absence of other specified parts of digestive tract; Z88.8 Allergy status to other drugs, medicaments and biological substances
CPT/HCPCS: 99291; 96374; 96361; 96375; 80053; 82550; 84484; 84703; 85025; 85045; 85610; 85730; 36415; 71045; 93005; J1200; J2270 ×2; J7030

== ENCOUNTER 2023-08-26 14:11 | Emergency (ER) | payer MEDICARE, OTHER ==
[~2023-08-26] VITALS: Ht 170.2 cm; Wt 77.3 kg
[2023-08-26] MEDS ORDERED: MORP15TA70 PO (15:45)
[2023-08-26] MEDS ORDERED: BUPR100S SQ (15:45)
[2023-08-26] MEDS ORDERED: PROM-223 PO (15:45)
[2023-08-26 16:27] LABS: BASOPHILS % (AUTO) 1.4 % (0.0-2.0); EOSINOPHILS % (AUTO) 9.1 % (1.0-6.0); HEMATOCRIT 25.4 % (36-46); HEMOGLOBIN 8.8 g/dL (12.0-16.0); LYMPHOCYTES # (AUTO) 3.2 K/uL (1.0-4.8); LYMPHOCYTES % (AUTO) 30.9 % (22.0-44.0); MEAN CORPUSCULAR HEMOGLOBIN 30.9 pg (26.0-34.0); MEAN CORPUSCULAR HGB CONC 34.5 G/dL (31.0-37.0); MEAN CORPUSCULAR VOLUME 90 fL (80-100); MONOCYTES # (AUTO) 0.8 K/uL (0.1-1.0); MONOCYTES % (AUTO) 8.1 % (2.0-9.0); NEUTROPHILS # (AUTO) 5.2 K/uL (1.8-7.7); NEUTROPHILS % (AUTO) 50.5 % (40.0-70.0); PLATELET COUNT (AUTO) 329 K/uL (150-450); RED BLOOD CELL COUNT(AUTO) 2.84 MIL/uL (4.00-5.20); RED CELL DISTRIBUTION WIDTH 23.6 % (11.5-14.5); RETICULOCYTE % (AUTO) 12.1 % (0.5-2.3); WHITE BLOOD COUNT (AUTO) 10.2 K/uL (4.5-11.0)
[2023-08-26 16:35] LABS: ANION GAP 9 mmol/L (8-16); CALCIUM, TOTAL 9.2 mg/dL (8.8-10.5); CARBON DIOXIDE 25 mmol/L (22-29); CHLORIDE 102 mmol/L (98-107); CREATININE 0.63 mg/dL (0.60-1.30); GLOMERULAR FILTR. RATE CALC > 60 mL/min (>60); GLUCOSE,RANDOM 97 mg/dL (70-110); POTASSIUM 3.8 mmol/L (3.5-5.1); SODIUM SERUM 136 mmol/L (136-145); UREA NITROGEN, BLOOD 5 mg/dL (7-18)
[2023-08-26 16:39] LABS: PROTHROMBIN TIME 10.9 SEC (9.4-11.6)
[2023-08-26 16:43] LABS: TROPONIN I-HIGH SENSITIVITY 5 ng/L (<51)
[2023-08-26 16:49] LABS: PLATELET MORPHOLOGY COMMENT GIANT PLTS PRESENT; RBC MORPHOLOGY COMMENT ABNORMAL RBC MORPH
[2023-08-26 17:00] LABS: ALANINE AMINOTRANSFERASE 39 U/L (12-78); ALKALINE PHOSPHATASE 79 U/L (46-116); ASPARTATE AMINOTRANSFERASE 38 U/L (15-37); BILIRUBIN,TOTAL 5.5 mg/dL (0.1-1.0); CREATINE KINASE, TOTAL ONLY 92 U/L (26-192); TOTAL PROTEIN, SERUM 7.7 g/dL (6.4-8.2)
[2023-08-26] MEDS: SODIUM CHLORIDE 0.9% 1,000 ML IV ONE (17:48)
[2023-08-26] MEDS: MORPHINE SULFATE 2 MG/ML SYRINGE IVP ONE (18:22)
[2023-08-26] MEDS: MORPHINE SULFATE 2 MG/ML SYRINGE IM ONE (19:15)
[2023-08-26] MEDS ORDERED: KETOROLAC TROMETHAMINE 15 MG/ML VIAL IVP PRN (19:15)
[2023-08-26] MEDS ORDERED: SODIUM CHLORIDE 0.9% 1,000 ML IV SCH (19:15)
[2023-08-26] MEDS ORDERED: ACET-2080 PO (19:15)
[2023-08-26 19:32] VITALS: BP 119/63; PULSE 65; RESP 16; TEMP 98.3
[2023-08-26] MEDS ORDERED: DOCUSATE SODIUM 100 MG CAPSULE PO SCH (21:00)
[2023-08-27] MEDS ORDERED: HEPARIN SODIUM,PORCINE 5,000 UNITS/ML VIAL SQ SCH
== END 2023-08-26 19:36 | disposition home or self-care (01) ==
LOC: EMS 14:22
DX: D57.00 Hb-SS disease with crisis, unspecified (principal); J45.909 Unspecified asthma, uncomplicated; J32.9 Chronic sinusitis, unspecified; Z90.49 Acquired absence of other specified parts of digestive tract; Z88.8 Allergy status to other drugs, medicaments and biological substances
CPT/HCPCS: 99285; 96374; 71045; 96361; 80053; 82550; 84484; 85025; 85045; 85610; 85730; 36415; 93005; 96372; J2270

== ENCOUNTER 2023-09-10 16:21 | Emergency (ER) | payer MEDICARE, OTHER ==
[~2023-09-10] VITALS: Ht 170.2 cm; Wt 78.2 kg
[~2023-09-10 16:21] MED LIST changes: +ACET-2080 PO; +BUPR100S SQ; -BUPR1FIL SL; +MORP15TA70 PO; +PROM-223 PO
[2023-09-10 16:30] VITALS: TEMP 98
[2023-09-10] MEDS: SODIUM CHLORIDE 0.9% 1,000 ML IV ONE (18:00)
[2023-09-10] MEDS: MORPHINE SULFATE 4 MG/ML SYRINGE IVP ONE (18:00)
[2023-09-10 18:03] LABS: COVID AG,FIA SOURCE NASAL SWAB
[2023-09-10 18:06] LABS: HEMOGLOBIN 10.4 g/dL (12.0-16.0); MONOCYTES # (AUTO) 0.9 K/uL (0.1-1.0); NEUTROPHILS # (AUTO) 4.2 K/uL (1.8-7.7); RETICULOCYTE % (AUTO) 13.5 % (0.5-2.3)
[2023-09-10 18:08] LABS: BASOPHILS % (AUTO) 1.6 % (0.0-2.0); EOSINOPHILS % (AUTO) 4.8 % (1.0-6.0); HEMATOCRIT 30.1 % (36-46); LYMPHOCYTES # (AUTO) 2.4 K/uL (1.0-4.8); LYMPHOCYTES % (AUTO) 30.2 % (22.0-44.0); MEAN CORPUSCULAR HEMOGLOBIN 31.4 pg (26.0-34.0); MEAN CORPUSCULAR HGB CONC 34.6 G/dL (31.0-37.0); MEAN CORPUSCULAR VOLUME 91 fL (80-100); MONOCYTES % (AUTO) 11.1 % (2.0-9.0); NEUTROPHILS % (AUTO) 52.3 % (40.0-70.0); PLATELET COUNT (AUTO) 342 K/uL (150-450); RED BLOOD CELL COUNT(AUTO) 3.32 MIL/uL (4.00-5.20); RED CELL DISTRIBUTION WIDTH 22.8 % (11.5-14.5); WHITE BLOOD COUNT (AUTO) 8.1 K/uL (4.5-11.0)
[2023-09-10 18:11] LABS: ANION GAP 9 mmol/L (8-16); CALCIUM, TOTAL 8.8 mg/dL (8.8-10.5); CARBON DIOXIDE 26 mmol/L (22-29); CHLORIDE 105 mmol/L (98-107); CREATININE 0.78 mg/dL (0.60-1.30); GLOMERULAR FILTR. RATE CALC > 60 mL/min (>60); GLUCOSE,RANDOM 98 mg/dL (70-110); POTASSIUM 3.6 mmol/L (3.5-5.1); SODIUM SERUM 140 mmol/L (136-145); UREA NITROGEN, BLOOD 6 mg/dL (7-18)
[2023-09-10 18:18] LABS: ALANINE AMINOTRANSFERASE 22 U/L (12-78); ALBUMIN 3.6 g/dL (3.4-5.0); ALKALINE PHOSPHATASE 79 U/L (46-116); ASPARTATE AMINOTRANSFERASE 20 U/L (15-37); BILIRUBIN,TOTAL 7.3 mg/dL (0.1-1.0); TOTAL PROTEIN, SERUM 7.8 g/dL (6.4-8.2)
[2023-09-10 18:20] LABS: SARS-COV2 (COVID) ANTIGEN,FIA Negative (Negative)
[2023-09-10] MEDS: MORPHINE SULFATE 2 MG/ML SYRINGE IVP ONE (18:28)
[2023-09-10 18:50] LABS: RBC MORPHOLOGY COMMENT ABNORMAL RBC MORPH
[2023-09-10 19:28] VITALS: BP 119/74; PULSE 69; RESP 16
== END 2023-09-10 19:30 | disposition home or self-care (01) ==
LOC: EMS 16:21
DX: D57.00 Hb-SS disease with crisis, unspecified (principal); J45.909 Unspecified asthma, uncomplicated; Z90.49 Acquired absence of other specified parts of digestive tract; Z98.890 Other specified postprocedural states; Z88.8 Allergy status to other drugs, medicaments and biological substances; Z20.822 Contact with and (suspected) exposure to COVID-19
CPT/HCPCS: 99283; 96374; 96361; 87426; 80053; 82550; 84703; 85025; 85045; 36415; J2270 ×2; J7030

== ENCOUNTER 2023-10-13 01:21 | Emergency (ER) | payer MEDICARE, OTHER ==
[~2023-10-13] VITALS: Ht 170.2 cm; Wt 75.0 kg
[2023-10-13 01:39] VITALS: BP 107/63; PULSE 67; RESP 20; TEMP 98.3
[2023-10-13] MEDS: SODIUM CHLORIDE 0.9% 1,000 ML IV ONE (03:32)
[2023-10-13 03:34] LABS: BASOPHILS % (AUTO) 1.7 % (0.0-2.0); EOSINOPHILS % (AUTO) 9.7 % (1.0-6.0); HEMATOCRIT 28.9 % (36-46); HEMOGLOBIN 10.1 g/dL (12.0-16.0); LYMPHOCYTES # (AUTO) 3.7 K/uL (1.0-4.8); LYMPHOCYTES % (AUTO) 36.1 % (22.0-44.0); MEAN CORPUSCULAR HEMOGLOBIN 31.6 pg (26.0-34.0); MEAN CORPUSCULAR HGB CONC 34.9 G/dL (31.0-37.0); MEAN CORPUSCULAR VOLUME 91 fL (80-100); MONOCYTES # (AUTO) 1.1 K/uL (0.1-1.0); NEUTROPHILS # (AUTO) 4.3 K/uL (1.8-7.7); NEUTROPHILS % (AUTO) 41.5 % (40.0-70.0); PLATELET COUNT (AUTO) 361 K/uL (150-450); RED BLOOD CELL COUNT(AUTO) 3.19 MIL/uL (4.00-5.20); RED CELL DISTRIBUTION WIDTH 20.6 % (11.5-14.5); WHITE BLOOD COUNT (AUTO) 10.3 K/uL (4.5-11.0)
[2023-10-13] MEDS: MORPHINE SULFATE 4 MG/ML SYRINGE IVP ONE (03:36)
[2023-10-13 03:47] LABS: ANION GAP 8 mmol/L (8-16); CALCIUM, TOTAL 8.4 mg/dL (8.8-10.5); CARBON DIOXIDE 28 mmol/L (22-29); CHLORIDE 102 mmol/L (98-107); CREATININE 0.71 mg/dL (0.60-1.30); GLOMERULAR FILTR. RATE CALC > 60 mL/min (>60); GLUCOSE,RANDOM 102 mg/dL (70-110); POTASSIUM 3.8 mmol/L (3.5-5.1); SODIUM SERUM 138 mmol/L (136-145); UREA NITROGEN, BLOOD 8 mg/dL (7-18)
== END 2023-10-13 04:41 | disposition home or self-care (01) ==
LOC: EMS 01:21
DX: D57.00 Hb-SS disease with crisis, unspecified (principal); J45.909 Unspecified asthma, uncomplicated; Z90.49 Acquired absence of other specified parts of digestive tract; Z98.890 Other specified postprocedural states; Z88.8 Allergy status to other drugs, medicaments and biological substances
CPT/HCPCS: 99283; 96374; 96361; 80048; 85025; 36415; J2270; J7030

== ENCOUNTER 2024-05-20 14:51 | Emergency (ER) | payer MEDICARE, OTHER ==
[~2024-05-20] VITALS: Ht 170.2 cm; Wt 70.9 kg
[~2024-05-20 14:51] MED LIST changes: +GABA-1404 PO; -GABA600T10 PO
[2024-05-20 15:35] VITALS: TEMP 98
[2024-05-20] MEDS: MORPHINE SULFATE 4 MG/ML SYRINGE IVP ONE (17:15)
[2024-05-20] MEDS: SODIUM CHLORIDE 0.9% 1,000 ML IV ONE ×2 (17:16→18:17)
[2024-05-20 17:20] LABS: BASOPHILS % (AUTO) 0.9 % (0.0-2.0); EOSINOPHILS % (AUTO) 1.1 % (1.0-6.0); HEMATOCRIT 28.8 % (36-46); HEMOGLOBIN 9.7 g/dL (12.0-16.0); LYMPHOCYTES # (AUTO) 5.2 K/uL (1.0-4.8); LYMPHOCYTES % (AUTO) 42.2 % (22.0-44.0); MEAN CORPUSCULAR HEMOGLOBIN 32.2 pg (26.0-34.0); MEAN CORPUSCULAR HGB CONC 33.7 G/dL (31.0-37.0); MEAN CORPUSCULAR VOLUME 95 fL (80-100); MONOCYTES # (AUTO) 0.9 K/uL (0.1-1.0); MONOCYTES % (AUTO) 7.7 % (2.0-9.0); NEUTROPHILS # (AUTO) 5.9 K/uL (1.8-7.7); NEUTROPHILS % (AUTO) 48.1 % (40.0-70.0); PLATELET COUNT (AUTO) 424 K/uL (150-450); RED BLOOD CELL COUNT(AUTO) 3.02 MIL/uL (4.00-5.20); RED CELL DISTRIBUTION WIDTH 18.9 % (11.5-14.5); RETICULOCYTE % (AUTO) 9.5 % (0.5-2.3); WHITE BLOOD COUNT (AUTO) 12.3 K/uL (4.5-11.0)
[2024-05-20 17:36] LABS: ALANINE AMINOTRANSFERASE 25 U/L (12-78); ALBUMIN 4.4 g/dL (3.4-5.0); ALKALINE PHOSPHATASE 68 U/L (46-116); ANION GAP 10 mmol/L (8-16); ASPARTATE AMINOTRANSFERASE 30 U/L (15-37); BILIRUBIN,TOTAL 3.4 mg/dL (0.1-1.0); CALCIUM, TOTAL 8.9 mg/dL (8.8-10.5); CARBON DIOXIDE 28 mmol/L (22-29); CHLORIDE 103 mmol/L (98-107); CREATININE 0.74 mg/dL (0.60-1.30); GLOMERULAR FILTR. RATE CALC > 60 mL/min (>60); GLUCOSE,RANDOM 88 mg/dL (70-110); SODIUM SERUM 141 mmol/L (136-145); TOTAL PROTEIN, SERUM 7.9 g/dL (6.4-8.2); UREA NITROGEN, BLOOD 3 mg/dL (7-18)
[2024-05-20 17:41] LABS: PROTHROMBIN TIME 11.7 SEC (9.4-11.6)
[2024-05-20 17:47] LABS: POTASSIUM 2.9 mmol/L (3.5-5.1)
[2024-05-20 17:58] LABS: TROPONIN I-HIGH SENSITIVITY 8 ng/L (<51)
[2024-05-20] MEDS: HYDROmorphone HCL 2 MG/ML SYRINGE IVP ONE (18:17)
[2024-05-20] MEDS: POTASSIUM CHLORIDE 20 MEQ ER TABLET PO ONE (19:20)
[2024-05-20] MEDS: POTASSIUM CHL 10 MEQ/WATER 50 ML IV ONE (19:21)
[2024-05-20] MEDS ORDERED: POTA-364 PO (19:54)
[2024-05-20 20:16] VITALS: BP 123/82; PULSE 80; RESP 14; O2SAT 97
== END 2024-05-21 04:48 | disposition home or self-care (01) ==
LOC: EMS 14:51
DX: D57.00 Hb-SS disease with crisis, unspecified (principal); E87.6 Hypokalemia; M54.50 Low back pain, unspecified; J45.909 Unspecified asthma, uncomplicated; Z88.8 Allergy status to other drugs, medicaments and biological substances; Z90.49 Acquired absence of other specified parts of digestive tract; Z79.899 Other long term (current) drug therapy
CPT/HCPCS: 99285; 96365; 96361; 96375; 71045; 80053; 84484; 85025; 85045; 85610; 85730; 36415; 93005; J1171; J2270; J3480; J7030

== ENCOUNTER 2024-07-23 19:20 | Emergency (ER) | payer MEDICARE, OTHER ==
[~2024-07-23] VITALS: Ht 170.2 cm; Wt 71.0 kg
[~2024-07-23 19:20] MED LIST changes: +POTA-364 PO
[2024-07-23 19:46] VITALS: TEMP 98.5
[2024-07-23 20:46] LABS: BASOPHILS % (AUTO) 0.9 % (0.0-2.0); EOSINOPHILS % (AUTO) 2.4 % (1.0-6.0); HEMATOCRIT 28.4 % (36-46); HEMOGLOBIN 9.8 g/dL (12.0-16.0); LYMPHOCYTES % (AUTO) 38.1 % (22.0-44.0); MEAN CORPUSCULAR HEMOGLOBIN 33.6 pg (26.0-34.0); MEAN CORPUSCULAR HGB CONC 34.5 G/dL (31.0-37.0); MEAN CORPUSCULAR VOLUME 97 fL (80-100); MONOCYTES # (AUTO) 0.9 K/uL (0.1-1.0); MONOCYTES % (AUTO) 8.7 % (2.0-9.0); NEUTROPHILS # (AUTO) 5.2 K/uL (1.8-7.7); NEUTROPHILS % (AUTO) 49.9 % (40.0-70.0); PLATELET COUNT (AUTO) 335 K/uL (150-450); RED BLOOD CELL COUNT(AUTO) 2.92 MIL/uL (4.00-5.20); RED CELL DISTRIBUTION WIDTH 19.2 % (11.5-14.5); WHITE BLOOD COUNT (AUTO) 10.4 K/uL (4.5-11.0)
[2024-07-23 21:02] LABS: TROPONIN I-HIGH SENSITIVITY 5 ng/L (<51)
[2024-07-23 21:06] LABS: ANION GAP 10 mmol/L (8-16); CALCIUM, TOTAL 8.9 mg/dL (8.8-10.5); CARBON DIOXIDE 26 mmol/L (22-29); CHLORIDE 101 mmol/L (98-107); CREATININE 0.73 mg/dL (0.60-1.30); GLOMERULAR FILTR. RATE CALC > 60 mL/min (>60); GLUCOSE,RANDOM 92 mg/dL (70-110); POTASSIUM 4.2 mmol/L (3.5-5.1); SODIUM SERUM 137 mmol/L (136-145); UREA NITROGEN, BLOOD 7 mg/dL (7-18)
[2024-07-23 21:11] LABS: ALANINE AMINOTRANSFERASE 21 U/L (12-78); ALBUMIN 4.2 g/dL (3.4-5.0); ALKALINE PHOSPHATASE 63 U/L (46-116); ASPARTATE AMINOTRANSFERASE 40 U/L (15-37); BILIRUBIN,TOTAL 3.1 mg/dL (0.1-1.0); TOTAL PROTEIN, SERUM 7.7 g/dL (6.4-8.2)
[2024-07-23] MEDS: HYDROmorphone HCL 2 MG/ML SYRINGE IVP ONE ×2 (22:26→23:28)
[2024-07-23] MEDS: KETOROLAC TROMETHAMINE 30 MG/ML VIAL IVP ONE (22:27)
[2024-07-23] MEDS: SODIUM CHLORIDE 0.9% 1,000 ML IV ONE ×2 (22:27→23:52)
[2024-07-24 00:30] VITALS: BP 124/76; PULSE 83; RESP 20; O2SAT 100
[2024-07-24] MEDS: HYDROmorphone HCL 2 MG/ML SYRINGE IVP ONE (00:40)
== END 2024-07-24 01:33 | disposition left against medical advice (07) ==
LOC: EMS 19:20
DX: D57.00 Hb-SS disease with crisis, unspecified (principal); R07.9 Chest pain, unspecified; J45.909 Unspecified asthma, uncomplicated; Z88.8 Allergy status to other drugs, medicaments and biological substances; Z90.49 Acquired absence of other specified parts of digestive tract; Z79.899 Other long term (current) drug therapy
CPT/HCPCS: 99285; 96374; 96361; 71045; 96375; 80048; 80076; 84484; 85025; 85045; 36415; 93005; 96376 ×2; J1885; J1171 ×2

== ENCOUNTER 2024-08-17 16:54 | Emergency (ER) | payer MEDICARE, OTHER ==
[~2024-08-17] VITALS: Ht 170.2 cm; Wt 70.0 kg
[2024-08-17 17:01] VITALS: TEMP 98.5
[2024-08-17] MEDS: SODIUM CHLORIDE 0.9% 1,000 ML IV ONE (19:56)
[2024-08-17] MEDS: HYDROmorphone HCL 2 MG/ML SYRINGE IVP ONE ×3 (19:57→22:40)
[2024-08-17 20:50] LABS: HEMATOCRIT 28.2 % (36-46); HEMOGLOBIN 9.5 g/dL (12.0-16.0); MEAN CORPUSCULAR HEMOGLOBIN 32.3 pg (26.0-34.0); MEAN CORPUSCULAR HGB CONC 33.6 G/dL (31.0-37.0); MEAN CORPUSCULAR VOLUME 96 fL (80-100); PLATELET COUNT (AUTO) 524 K/uL (150-450); RED BLOOD CELL COUNT(AUTO) 2.94 MIL/uL (4.00-5.20); RED CELL DISTRIBUTION WIDTH 21.7 % (11.5-14.5); RETICULOCYTE % (AUTO) 8.4 % (0.5-2.3); WHITE BLOOD COUNT (AUTO) 13.7 K/uL (4.5-11.0)
[2024-08-17 20:51] LABS: ANION GAP 10 mmol/L (8-16); CALCIUM, TOTAL 8.7 mg/dL (8.8-10.5); CARBON DIOXIDE 25 mmol/L (22-29); CHLORIDE 105 mmol/L (98-107); CREATININE 0.71 mg/dL (0.60-1.30); GLOMERULAR FILTR. RATE CALC > 60 mL/min (>60); GLUCOSE,RANDOM 88 mg/dL (70-110); POTASSIUM 3.7 mmol/L (3.5-5.1); SODIUM SERUM 140 mmol/L (136-145); UREA NITROGEN, BLOOD 4 mg/dL (7-18)
[2024-08-17 20:55] LABS: ALANINE AMINOTRANSFERASE 19 U/L (12-78); ALBUMIN 3.9 g/dL (3.4-5.0); ALKALINE PHOSPHATASE 59 U/L (46-116); ASPARTATE AMINOTRANSFERASE 23 U/L (15-37); BILIRUBIN,TOTAL 1.5 mg/dL (0.1-1.0); TOTAL PROTEIN, SERUM 7.9 g/dL (6.4-8.2)
[2024-08-17 21:17] LABS: BAND NEUTROPHILS % (MANUAL) 2 % (0-5); LYMPHOCYTES % (MANUAL) 23 % (22-44); MONOCYTES % (MANUAL) 4 % (2-9); RBC MORPHOLOGY COMMENT ABNORMAL RBC MORPH; SEGMENTED NEUTROPHILS % 71 % (40-70); TOTAL CELLS COUNTED 100
[2024-08-17 22:48] VITALS: BP 115/64; PULSE 90; RESP 14; O2SAT 97
== END 2024-08-17 22:49 | disposition home or self-care (01) ==
LOC: EMS 16:54
DX: D57.00 Hb-SS disease with crisis, unspecified (principal); R09.81 Nasal congestion; J45.909 Unspecified asthma, uncomplicated; Z88.8 Allergy status to other drugs, medicaments and biological substances; Z90.49 Acquired absence of other specified parts of digestive tract; Z79.899 Other long term (current) drug therapy
CPT/HCPCS: 99284; 96374; 71045; 96361; 80048; 80076; 84703; 85025; 85045; 36415; 96376; J1171; J7030

== ENCOUNTER 2024-08-21 17:11 | Emergency (ER) | payer MEDICARE, OTHER ==
[~2024-08-21] VITALS: Ht 170.2 cm; Wt 68.2 kg
[2024-08-21 17:15] VITALS: BP 118/78; PULSE 83; RESP 16; TEMP 98.5; O2SAT 96
[2024-08-21] MEDS: HYDROmorphone HCL 2 MG/ML SYRINGE IVP ONE ×3 (19:58→21:51)
[2024-08-21] MEDS: SODIUM CHLORIDE 0.9% 1,000 ML IV ONE (19:58)
== END 2024-08-21 22:13 | disposition home or self-care (01) ==
LOC: EMS 17:11
DX: D57.00 Hb-SS disease with crisis, unspecified (principal); J45.909 Unspecified asthma, uncomplicated; Z88.8 Allergy status to other drugs, medicaments and biological substances; Z90.49 Acquired absence of other specified parts of digestive tract
CPT/HCPCS: 99284; 96374; 96361; 96376; J1171; J7030

== ENCOUNTER 2024-08-25 19:09 | Emergency (ER) | payer MEDICARE, OTHER ==
[~2024-08-25] VITALS: Ht 157.5 cm; Wt 57.7 kg
[2024-08-25] MEDS: SODIUM CHLORIDE 0.9% 1,000 ML IV ONE (21:27)
[2024-08-25] MEDS: HYDROmorphone HCL 2 MG/ML SYRINGE IVP ONE (21:27)
[2024-08-25] MEDS ORDERED: HYDROmorphone HCL 2 MG/ML SYRINGE IVP ONE (22:15)
[2024-08-25 22:25] VITALS: BP 117/70; PULSE 89; RESP 16; TEMP 98.3; O2SAT 99
== END 2024-08-25 22:27 | disposition home or self-care (01) ==
LOC: EMS 19:09
DX: D57.00 Hb-SS disease with crisis, unspecified (principal); J45.909 Unspecified asthma, uncomplicated; Z88.8 Allergy status to other drugs, medicaments and biological substances; Z90.49 Acquired absence of other specified parts of digestive tract
CPT/HCPCS: 99283; 96374; 96361; J1171; J7030

== ENCOUNTER 2024-08-28 20:50 | Emergency (ER) | payer MEDICARE, OTHER ==
[~2024-08-28] VITALS: Ht 170.2 cm; Wt 67.3 kg
[2024-08-28 20:56] VITALS: TEMP 98.6
[2024-08-28 22:51] VITALS: BP 126/77; PULSE 79; RESP 20; O2SAT 94
[2024-08-28 23:42] LABS: ANION GAP 11 mmol/L (8-16); CALCIUM, TOTAL 8.6 mg/dL (8.8-10.5); CARBON DIOXIDE 25 mmol/L (22-29); CHLORIDE 107 mmol/L (98-107); CREATININE 0.67 mg/dL (0.60-1.30); GLOMERULAR FILTR. RATE CALC > 60 mL/min (>60); GLUCOSE,RANDOM 86 mg/dL (70-110); POTASSIUM 3.6 mmol/L (3.5-5.1); SODIUM SERUM 143 mmol/L (136-145); UREA NITROGEN, BLOOD 4 mg/dL (7-18)
[2024-08-28 23:51] LABS: HEMATOCRIT 27.9 % (36-46); HEMOGLOBIN 9.3 g/dL (12.0-16.0); MEAN CORPUSCULAR HEMOGLOBIN 32.4 pg (26.0-34.0); MEAN CORPUSCULAR HGB CONC 33.4 G/dL (31.0-37.0); MEAN CORPUSCULAR VOLUME 97 fL (80-100); PLATELET COUNT (AUTO) 426 K/uL (150-450); RED BLOOD CELL COUNT(AUTO) 2.88 MIL/uL (4.00-5.20); RED CELL DISTRIBUTION WIDTH 18.5 % (11.5-14.5); RETICULOCYTE % (AUTO) 9.2 % (0.5-2.3)
[2024-08-29] LABS: WHITE BLOOD COUNT (AUTO) 9.6 K/uL (4.5-11.0)
[2024-08-29 00:34] LABS: BAND NEUTROPHILS % (MANUAL) 0 % (0-5)
[2024-08-29 00:38] LABS: EOSINOPHILS % (MANUAL) 2 % (1-6); LYMPHOCYTES % (MANUAL) 37 % (22-44); MONOCYTES % (MANUAL) 10 % (2-9); SEGMENTED NEUTROPHILS % 51 % (40-70); TOTAL CELLS COUNTED 100
[2024-08-29 00:40] LABS: RBC MORPHOLOGY COMMENT ABNORMAL RBC MORPH
[2024-08-29] MEDS: KETOROLAC TROMETHAMINE 30 MG/ML VIAL IM ONE (01:34)
[2024-08-29] MEDS: HYDROmorphone HCL 2 MG/ML SYRINGE IM ONE ×2 (01:34→02:47)
[2024-08-29] MEDS: KETAMINE HCL 50 MG/ML 10 ML VIAL IM ONE (01:35)
== END 2024-08-29 02:50 | disposition home or self-care (01) ==
LOC: EMS 20:50
DX: D57.00 Hb-SS disease with crisis, unspecified (principal); J45.909 Unspecified asthma, uncomplicated; Z88.8 Allergy status to other drugs, medicaments and biological substances; Z90.49 Acquired absence of other specified parts of digestive tract
CPT/HCPCS: 99284; 80048; 85025; 85045; 36415; 96372; J1885; J1171; J3490

== ENCOUNTER 2024-09-04 23:28 | Emergency (ER) | payer MEDICARE, OTHER ==
[~2024-09-04] VITALS: Ht 170.2 cm; Wt 67.3 kg
[2024-09-04 23:35] VITALS: TEMP 98.6
[2024-09-05 00:57] LABS: COVID AG,FIA SOURCE NASAL SWAB
[2024-09-05 01:11] LABS: INFLUENZA TYPE A NEGATIVE FOR TYPE A (NEGATIVE); INFLUENZA TYPE B NEGATIVE FOR TYPE B (NEGATIVE); SARS-COV2 (COVID) ANTIGEN,FIA Negative (Negative)
[2024-09-05] MEDS: OxyCODONE HCL 5 MG IR TABLET PO ONE (01:34)
[2024-09-05 02:10] VITALS: BP 123/79; PULSE 84; RESP 18; O2SAT 96
== END 2024-09-05 02:24 | disposition home or self-care (01) ==
LOC: EMS 23:37
DX: R10.84 Generalized abdominal pain (principal); J45.909 Unspecified asthma, uncomplicated; D57.1 Sickle-cell disease without crisis; Z88.8 Allergy status to other drugs, medicaments and biological substances; Z90.49 Acquired absence of other specified parts of digestive tract; Z20.822 Contact with and (suspected) exposure to COVID-19
CPT/HCPCS: 87804; 99283

== ENCOUNTER → 2024-09-23 | Emergency (ER) | payer MEDICARE, OTHER ==
[~2024-09-23] VITALS: Ht 170.2 cm; Wt 65.9 kg
[~2024-09-23] MED LIST changes: -ACET-2080 PO; -BUPR100S SQ; +CEPH-558 PO; -FOLI-130 PO; -GABA-1404 PO; +GLUT5POW PO; +HYDR500 PO; -MORP15TA70 PO; -POTA-364 PO; -PROM-223 PO
[2024-09-23 18:44] VITALS: BP 117/62; PULSE 75; RESP 18; TEMP 97.8; O2SAT 97
== END | disposition left against medical advice (07) ==
LOC: EMS 18:35
DX: R52 Pain, unspecified (principal); Z53.21 Procedure and treatment not carried out due to patient leaving prior to being seen by health care provider

== ENCOUNTER 2024-09-25 20:55 | Emergency (ER) | payer MEDICARE, OTHER ==
[~2024-09-25] VITALS: Ht 170.2 cm; Wt 65.0 kg
[~2024-09-25 20:55] MED LIST changes: -CEPH-558 PO
[2024-09-25 21:25] VITALS: TEMP 98.4
[2024-09-26] MEDS: SODIUM CHLORIDE 0.9% 1,000 ML IV ONE (03:08)
[2024-09-26] MEDS: HYDROmorphone HCL 2 MG/ML SYRINGE IVP ONE ×2 (03:08→04:16)
[2024-09-26 03:30] LABS: ANION GAP 10 mmol/L (8-16); CALCIUM, TOTAL 8.9 mg/dL (8.8-10.5); CARBON DIOXIDE 26 mmol/L (22-29); CHLORIDE 104 mmol/L (98-107); CREATININE 0.65 mg/dL (0.60-1.30); GLOMERULAR FILTR. RATE CALC > 60 mL/min (>60); GLUCOSE,RANDOM 130 mg/dL (70-110); POTASSIUM 3.5 mmol/L (3.5-5.1); SODIUM SERUM 140 mmol/L (136-145); UREA NITROGEN, BLOOD 5 mg/dL (7-18)
[2024-09-26 03:42] LABS: HEMATOCRIT 28.9 % (36-46); HEMOGLOBIN 9.6 g/dL (12.0-16.0); MEAN CORPUSCULAR HEMOGLOBIN 32.9 pg (26.0-34.0); MEAN CORPUSCULAR HGB CONC 33.2 G/dL (31.0-37.0); MEAN CORPUSCULAR VOLUME 99 fL (80-100); PLATELET COUNT (AUTO) 473 K/uL (150-450); RED BLOOD CELL COUNT(AUTO) 2.92 MIL/uL (4.00-5.20); RED CELL DISTRIBUTION WIDTH 17.9 % (11.5-14.5)
[2024-09-26 04:08] LABS: BAND NEUTROPHILS % (MANUAL) 0 % (0-5)
[2024-09-26 04:13] LABS: CORRECTED WHITE BLOOD COUNT 11.9 K/uL (4.5-11.0); EOSINOPHILS % (MANUAL) 2 % (1-6); LYMPHOCYTES % (MANUAL) 44 % (22-44); MONOCYTES % (MANUAL) 7 % (2-9); SEGMENTED NEUTROPHILS % 47 % (40-70); TOTAL CELLS COUNTED 100; WHITE BLOOD COUNT (AUTO) 11.9 K/uL (4.5-11.0)
[2024-09-26 04:17] LABS: RBC MORPHOLOGY COMMENT ABNORMAL R
[2024-09-26 04:26] LABS: RETICULOCYTE % (AUTO) 12.3 % (0.5-2.3)
[2024-09-26 04:31] LABS: APPEARANCE,URINE CLEAR (CLEAR); BILIRUBIN,URINE NEGATIVE (NEGATIVE); COLOR,URINE LIGHT YELLOW (YELLOW); GLUCOSE, URINE (UA) NEGATIVE (NEGATIVE); KETONES,URINE NEGATIVE (NEGATIVE); LEUKOCYTE ESTERASE ,URINE NEGATIVE (NEGATIVE); NITRATE,URINE NEGATIVE (NEGATIVE); OCCULT BLOOD,URINE NEGATIVE (NEGATIVE); PROTEIN,URINE NEGATIVE (NEGATIVE); SPECIFIC GRAVITIY, URINE 1.019 (1.003-1.030); UROBILINOGEN,URINE <=1.0 mg/dL (<=1.0)
[2024-09-26 04:36] VITALS: BP 133/84; PULSE 80; RESP 16; O2SAT 99
[2024-09-26] MEDS ORDERED: CEPH-558 PO (04:43)
== END 2024-09-26 05:40 | disposition home or self-care (01) ==
LOC: EMS 20:55
DX: D57.00 Hb-SS disease with crisis, unspecified (principal); J45.909 Unspecified asthma, uncomplicated; Z88.8 Allergy status to other drugs, medicaments and biological substances; Z90.49 Acquired absence of other specified parts of digestive tract
CPT/HCPCS: 99284; 80048; 81003; 84703; 85025; 85045; 36415; 96374; 96361; 96376; J1171; J7030

== ENCOUNTER 2024-10-08 22:09 | Emergency (ER) | payer MEDICARE, OTHER ==
[~2024-10-08] VITALS: Ht 170.2 cm; Wt 65.0 kg
[~2024-10-08 22:09] MED LIST changes: +CEPH-558 PO
[2024-10-08 22:19] VITALS: TEMP 98.6
[2024-10-09 03:50] VITALS: BP 122/74; PULSE 80; RESP 18; O2SAT 98
[2024-10-09] MEDS ORDERED: HYDROmorphone HCL 2 MG/ML SYRINGE ONE (03:53)
[2024-10-09] MEDS: SODIUM CHLORIDE 0.9% 1,000 ML IV ONE (04:03)
[2024-10-09] MEDS: HYDROmorphone HCL 2 MG/ML SYRINGE IVP ONE ×2 (04:15→05:00)
[2024-10-09 04:43] LABS: BASOPHILS % (AUTO) 0.7 % (0.0-2.0); HEMOGLOBIN 8.8 g/dL (12.0-16.0); LYMPHOCYTES # (AUTO) 4.4 K/uL (1.0-4.8); LYMPHOCYTES % (AUTO) 33.5 % (22.0-44.0); MEAN CORPUSCULAR HEMOGLOBIN 32.1 pg (26.0-34.0); MEAN CORPUSCULAR HGB CONC 33.8 G/dL (31.0-37.0); MEAN CORPUSCULAR VOLUME 95 fL (80-100); MONOCYTES # (AUTO) 1.2 K/uL (0.1-1.0); MONOCYTES % (AUTO) 9.5 % (2.0-9.0); NEUTROPHILS # (AUTO) 6.9 K/uL (1.8-7.7); NEUTROPHILS % (AUTO) 52.3 % (40.0-70.0); PLATELET COUNT (AUTO) 342 K/uL (150-450); RED BLOOD CELL COUNT(AUTO) 2.73 MIL/uL (4.00-5.20); RED CELL DISTRIBUTION WIDTH 18.6 % (11.5-14.5); RETICULOCYTE % (AUTO) 8.6 % (0.5-2.3); WHITE BLOOD COUNT (AUTO) 13.1 K/uL (4.5-11.0)
[2024-10-09 05:13] LABS: ANION GAP 6 mmol/L (8-16); CALCIUM, TOTAL 8.7 mg/dL (8.8-10.5); CARBON DIOXIDE 27 mmol/L (22-29); CHLORIDE 106 mmol/L (98-107); GLOMERULAR FILTR. RATE CALC > 60 mL/min (>60); GLUCOSE,RANDOM 79 mg/dL (70-110); POTASSIUM 3.4 mmol/L (3.5-5.1); SODIUM SERUM 139 mmol/L (136-145); UREA NITROGEN, BLOOD 8 mg/dL (7-18)
[2024-10-09 05:23] LABS: TROPONIN I-HIGH SENSITIVITY 7 ng/L (<51)
[2024-10-09 06:13] LABS: RBC MORPHOLOGY COMMENT ABNORMAL RBC MORPH
== END 2024-10-09 05:59 | disposition home or self-care (01) ==
LOC: EMS 22:09
DX: D57.00 Hb-SS disease with crisis, unspecified (principal); J45.909 Unspecified asthma, uncomplicated; Z88.8 Allergy status to other drugs, medicaments and biological substances; Z90.49 Acquired absence of other specified parts of digestive tract
CPT/HCPCS: 99285; 71045; 80048; 84484; 85025; 85045; 36415; 93005; 96374; 96361; 96376; J1171; J7030

== ENCOUNTER 2024-12-13 04:09 | Emergency (ER) | payer MEDICARE, OTHER ==
[~2024-12-13] VITALS: Ht 170.2 cm; Wt 75.0 kg
[2024-12-13] MEDS: HYDROmorphone HCL 2 MG TABLET PO ONE ×2 (04:59→06:17)
[2024-12-13 06:21] VITALS: BP 125/77; PULSE 80; RESP 18; O2SAT 98
== END 2024-12-13 06:23 | disposition home or self-care (01) ==
LOC: EMS 04:11
DX: D57.00 Hb-SS disease with crisis, unspecified (principal); J45.909 Unspecified asthma, uncomplicated; Z90.49 Acquired absence of other specified parts of digestive tract; Z88.8 Allergy status to other drugs, medicaments and biological substances; Z79.899 Other long term (current) drug therapy
CPT/HCPCS: 99283

== ENCOUNTER 2025-01-05 09:01 | Emergency (ER) | payer MEDICARE, OTHER ==
[~2025-01-05] VITALS: Ht 170.2 cm; Wt 69.0 kg
[2025-01-05 09:23] VITALS: TEMP 97.9
[2025-01-05] MEDS: MORPHINE SULFATE 2 MG/ML SYRINGE IVP ONE (10:07)
[2025-01-05] MEDS: SODIUM CHLORIDE 0.9% 2,050 ML IV ONE (10:07)
[2025-01-05 10:16] LABS: PLATELET COUNT (AUTO) 339 K/uL (150-450); RED BLOOD CELL COUNT(AUTO) 2.56 MIL/uL (4.00-5.20); RED CELL DISTRIBUTION WIDTH 20.2 % (11.5-14.5); WHITE BLOOD COUNT (AUTO) 9.1 K/uL (4.5-11.0)
[2025-01-05 10:20] LABS: CALCIUM, TOTAL 8.8 mg/dL (8.8-10.5); CREATININE 0.70 mg/dL (0.60-1.30); GLOMERULAR FILTR. RATE CALC > 60 mL/min (>60); GLUCOSE,RANDOM 91 mg/dL (70-110); SODIUM SERUM 144 mmol/L (136-145); UREA NITROGEN, BLOOD 8 mg/dL (7-18)
[2025-01-05 10:35] LABS: BAND NEUTROPHILS % (MANUAL) 0 % (0-5)
[2025-01-05 10:38] LABS: LYMPHOCYTES % (MANUAL) 44 % (22-44); MONOCYTES % (MANUAL) 8 % (2-9); NUCLEATED RED BLOOD CELLS 1.0 % (0.0-0.0); REACTIVE LYMPHOCYTES 3 % (0-0); SEGMENTED NEUTROPHILS % 45 % (40-70)
[2025-01-05 10:39] LABS: RBC MORPHOLOGY COMMENT ABNORMAL RBC MORPH
[2025-01-05] MEDS: MORPHINE SULFATE 4 MG/ML SYRINGE IVP ONE (11:12)
[2025-01-05 12:12] LABS: APPEARANCE,URINE CLEAR (CLEAR); GLUCOSE, URINE (UA) NEGATIVE (NEGATIVE); LEUKOCYTE ESTERASE ,URINE NEGATIVE (NEGATIVE); NITRATE,URINE NEGATIVE (NEGATIVE); OCCULT BLOOD,URINE NEGATIVE (NEGATIVE); SPECIFIC GRAVITIY, URINE 1.011 (1.003-1.030)
[2025-01-05 12:18] VITALS: BP 113/78; PULSE 85; RESP 18; O2SAT 95
[2025-01-05 12:24] LABS: SQUAMOUS EPITHELIAL CELL,UR Few /LPF (None Seen)
== END 2025-01-05 13:07 | disposition home or self-care (01) ==
LOC: EMS 09:03
DX: D57.00 Hb-SS disease with crisis, unspecified (principal); R10.84 Generalized abdominal pain; J45.909 Unspecified asthma, uncomplicated; Z90.49 Acquired absence of other specified parts of digestive tract; Z88.8 Allergy status to other drugs, medicaments and biological substances; Z79.899 Other long term (current) drug therapy
CPT/HCPCS: 99284; 96374; 96361; 96375; 71045; 80048; 81001; 85025; 85045; 36415; J1171; J2270 ×2; J7030

== ENCOUNTER 2025-01-10 06:39 | Emergency (ER) | payer MEDICARE, OTHER ==
[~2025-01-10] VITALS: Ht 170.2 cm; Wt 69.5 kg
[~2025-01-10 06:39] MED LIST changes: -CEPH-558 PO
[2025-01-10 06:43] VITALS: BP 124/82; PULSE 71; RESP 16; TEMP 97.9; O2SAT 99
[2025-01-10] MEDS: SODIUM CHLORIDE 0.9% 1,000 ML IV ONE (07:43)
[2025-01-10] MEDS: MORPHINE SULFATE 4 MG/ML SYRINGE IVP ONE (07:43)
[2025-01-10 07:49] LABS: PLATELET COUNT (AUTO) 379 K/uL (150-450); RED BLOOD CELL COUNT(AUTO) 2.71 MIL/uL (4.00-5.20); RED CELL DISTRIBUTION WIDTH 16.6 % (11.5-14.5); WHITE BLOOD COUNT (AUTO) 9.6 K/uL (4.5-11.0)
[2025-01-10 07:50] LABS: CALCIUM, TOTAL 9.0 mg/dL (8.8-10.5); CREATININE 0.73 mg/dL (0.60-1.30); GLOMERULAR FILTR. RATE CALC > 60 mL/min (>60); GLUCOSE,RANDOM 88 mg/dL (70-110); SODIUM SERUM 142 mmol/L (136-145); UREA NITROGEN, BLOOD 7 mg/dL (7-18)
[2025-01-10 07:58] LABS: APPEARANCE,URINE HAZY (CLEAR); GLUCOSE, URINE (UA) NEGATIVE (NEGATIVE); LEUKOCYTE ESTERASE ,URINE LARGE (NEGATIVE); NITRATE,URINE NEGATIVE (NEGATIVE); OCCULT BLOOD,URINE NEGATIVE (NEGATIVE); SPECIFIC GRAVITIY, URINE 1.013 (1.003-1.030)
[2025-01-10 08:17] LABS: RBC MORPHOLOGY COMMENT ABNORMAL RBC MORPH
[2025-01-10 08:18] LABS: SQUAMOUS EPITHELIAL CELL,UR Moderate /LPF (None Seen)
[2025-01-10 08:21] LABS: YEAST,URINE Few /HPF (None Seen)
[2025-01-10] MEDS: CefTRIAXone 1 GM/DEXTROSE 50 ML IV ONE (08:50)
[2025-01-10] MEDS ORDERED: CEPH-558 PO (08:56)
== END 2025-01-10 09:38 | disposition home or self-care (01) ==
LOC: EMS 06:39
DX: D57.00 Hb-SS disease with crisis, unspecified (principal); N39.0 Urinary tract infection, site not specified; J45.909 Unspecified asthma, uncomplicated; Z88.8 Allergy status to other drugs, medicaments and biological substances; Z90.49 Acquired absence of other specified parts of digestive tract
CPT/HCPCS: 99284; 96365; 96375; 80048; 81001; 83735; 84703; 85025; 85045; 87086; 36415; 96376; J0696; J1171; J2270; J7030

== ENCOUNTER 2025-01-21 09:08 | Emergency (ER) | payer MEDICARE, OTHER ==
[~2025-01-21] VITALS: Ht 170.2 cm; Wt 69.5 kg
[~2025-01-21 09:08] MED LIST changes: +CEPH-558 PO
[2025-01-21] MEDS ORDERED: HYDR2TAB37 PO (09:12)
[2025-01-21 09:14] VITALS: TEMP 98.3
[2025-01-21] MEDS: SODIUM CHLORIDE 0.9% 1,000 ML IV ONE (10:18)
[2025-01-21] MEDS: PROMETHAZINE HCL 25 MG TABLET PO ONE (10:20)
[2025-01-21 10:31] LABS: RED BLOOD CELL COUNT(AUTO) 2.41 MIL/uL (4.00-5.20)
[2025-01-21 10:34] LABS: CALCIUM, TOTAL 7.9 mg/dL (8.8-10.5); CREATININE 0.83 mg/dL (0.60-1.30); GLOMERULAR FILTR. RATE CALC > 60 mL/min (>60); GLUCOSE,RANDOM 112 mg/dL (70-110); SODIUM SERUM 141 mmol/L (136-145); UREA NITROGEN, BLOOD 8 mg/dL (7-18)
[2025-01-21 10:39] LABS: PLATELET COUNT (AUTO) 553 K/uL (150-450); RED CELL DISTRIBUTION WIDTH 20.5 % (11.5-14.5); WHITE BLOOD COUNT (AUTO) 14.2 K/uL (4.5-11.0)
[2025-01-21 11:14] LABS: RBC MORPHOLOGY COMMENT ABNORMAL RBC MORPH
[2025-01-21 11:20] VITALS: BP 136/74; PULSE 93; RESP 20; O2SAT 99
== END 2025-01-21 11:27 | disposition home or self-care (01) ==
LOC: EMS 09:10
DX: D57.00 Hb-SS disease with crisis, unspecified (principal); J45.909 Unspecified asthma, uncomplicated; R11.2 Nausea with vomiting, unspecified; Z88.8 Allergy status to other drugs, medicaments and biological substances; Z90.49 Acquired absence of other specified parts of digestive tract
CPT/HCPCS: 99284; 96374; 96361; 80048; 84702; 85025; 85045; 36415; 96376; J1171; J7030

== ENCOUNTER 2025-02-04 12:14 | Emergency (ER) | payer MEDICARE, OTHER ==
[~2025-02-04] VITALS: Ht 170.2 cm; Wt 65.0 kg
[~2025-02-04 12:14] MED LIST changes: -CEPH-558 PO; +HYDR2TAB37 PO
[2025-02-04 12:17] VITALS: TEMP 97.7
[2025-02-04 14:01] LABS: PLATELET COUNT (AUTO) 370 K/uL (150-450); RED BLOOD CELL COUNT(AUTO) 2.52 MIL/uL (4.00-5.20); RED CELL DISTRIBUTION WIDTH 19.1 % (11.5-14.5)
[2025-02-04 14:08] LABS: CREATININE 0.62 mg/dL (0.60-1.30); GLUCOSE,RANDOM 87 mg/dL (70-110); SODIUM SERUM 140 mmol/L (136-145); UREA NITROGEN, BLOOD 5 mg/dL (7-18)
[2025-02-04 14:09] LABS: CALCIUM, TOTAL 8.2 mg/dL (8.8-10.5); GLOMERULAR FILTR. RATE CALC > 60 mL/min (>60)
[2025-02-04 14:31] LABS: BAND NEUTROPHILS % (MANUAL) 2 % (0-5); CORRECTED WHITE BLOOD COUNT 6.1 K/uL (4.5-11.0); EOSINOPHILS % (MANUAL) 1 % (1-6); LYMPHOCYTES % (MANUAL) 28 % (22-44); MONOCYTES % (MANUAL) 11 % (2-9); NUCLEATED RED BLOOD CELLS 9.0 % (0.0-0.0); SEGMENTED NEUTROPHILS % 58 % (40-70)
[2025-02-04] MEDS ORDERED: HYDR28.484 TP (14:31)
[2025-02-04] MEDS ORDERED: FOLI-130 PO (14:31)
[2025-02-04 14:35] LABS: WHITE BLOOD COUNT (AUTO) 6.1 K/uL (4.5-11.0)
[2025-02-04] MEDS ORDERED: IOHEXOL 350 MG/ML 100 ML VIAL ONE (14:35)
[2025-02-04] MEDS ORDERED: SODIUM CHLORIDE 0.9% 0 ML ONE (14:35)
[2025-02-04] MEDS: PROMETHAZINE HCL 25 MG TABLET PO ONE (14:42)
[2025-02-04] MEDS: SODIUM CHLORIDE 0.9% 1,000 ML IV ONE (14:42)
[2025-02-04] MEDS: MORPHINE SULFATE 2 MG/ML SYRINGE IVP ONE (14:43)
[2025-02-04 14:47] LABS: RBC MORPHOLOGY COMMENT ABNORMAL R
[2025-02-04 15:05] LABS: ASPARTATE AMINOTRANSFERASE 38.0 U/L (15-37); TOTAL PROTEIN, SERUM 7.4 g/dL (6.4-8.2)
[2025-02-04 15:28] LABS: APPEARANCE,URINE CLEAR (CLEAR); GLUCOSE, URINE (UA) NEGATIVE (NEGATIVE); LEUKOCYTE ESTERASE ,URINE NEGATIVE (NEGATIVE); NITRATE,URINE NEGATIVE (NEGATIVE); OCCULT BLOOD,URINE NEGATIVE (NEGATIVE); SPECIFIC GRAVITIY, URINE 1.020 (1.003-1.030)
[2025-02-04] MEDS ORDERED: 0.9% SODIUM CHLORIDE 10 ML SYRINGE IVP ONE (15:54)
[2025-02-04] MEDS ORDERED: IOHEXOL 300 MG/ML 100 ML VIAL ONE (15:54)
[2025-02-04] MEDS ORDERED: SODIUM CHLORIDE 0.9% 100 ML ONE (15:55)
[2025-02-04 18:09] VITALS: BP 138/81; PULSE 90; RESP 20; O2SAT 97
== END 2025-02-04 20:03 | disposition home or self-care (01) ==
LOC: EMS 12:37
DX: D57.00 Hb-SS disease with crisis, unspecified (principal); R11.2 Nausea with vomiting, unspecified; M79.604 Pain in right leg; J45.909 Unspecified asthma, uncomplicated; Z90.49 Acquired absence of other specified parts of digestive tract; Z98.890 Other specified postprocedural states; Z79.64 Long term (current) use of myelosuppressive agent; Z88.8 Allergy status to other drugs, medicaments and biological substances; Z79.899 Other long term (current) drug therapy
CPT/HCPCS: 99285; 74177; 96374; 96361; 96375; 80048; 80076; 81003; 84702; 85025; 85045; 36415; 96376; J1171; J2270; J7030; J7050; Q9967

== ENCOUNTER 2025-02-16 22:11 | Emergency (ER) | payer MEDICARE, OTHER ==
[~2025-02-16] VITALS: Ht 170.2 cm; Wt 65.9 kg
[~2025-02-16 22:11] MED LIST changes: +FOLI-130 PO; -GLUT5POW PO; +HYDR28.484 TP
[2025-02-16 23:41] VITALS: BP 111/81; PULSE 91; RESP 20; TEMP 98.005280; O2SAT 97
[2025-02-17] MEDS: PROMETHAZINE HCL 25 MG TABLET PO ONE (00:41)
== END 2025-02-17 00:10 | disposition home or self-care (01) ==
LOC: EMS 22:22
DX: R11.2 Nausea with vomiting, unspecified (principal); D57.00 Hb-SS disease with crisis, unspecified; J45.909 Unspecified asthma, uncomplicated; Z90.49 Acquired absence of other specified parts of digestive tract; Z98.890 Other specified postprocedural states; Z79.64 Long term (current) use of myelosuppressive agent; Z88.8 Allergy status to other drugs, medicaments and biological substances; Z79.899 Other long term (current) drug therapy
CPT/HCPCS: 99283

== ENCOUNTER 2025-06-03 00:35 | Emergency (ER) | payer MEDICARE, OTHER ==
[~2025-06-03] VITALS: Ht 170.2 cm; Wt 67.3 kg
[2025-06-03 00:45] VITALS: TEMP 97.9
[2025-06-03] MEDS: SODIUM CHLORIDE 0.9% 1,000 ML IV ONE (03:16)
[2025-06-03 03:28] LABS: PLATELET COUNT (AUTO) 609 K/uL (150-450); RED BLOOD CELL COUNT(AUTO) 2.96 MIL/uL (4.00-5.20); RED CELL DISTRIBUTION WIDTH 23.6 % (11.5-14.5); WHITE BLOOD COUNT (AUTO) 9.0 K/uL (4.5-11.0)
[2025-06-03 03:30] LABS: CALCIUM, TOTAL 8.3 mg/dL (8.8-10.5); CREATININE 0.84 mg/dL (0.60-1.30); GLOMERULAR FILTR. RATE CALC > 60 mL/min (>60); GLUCOSE,RANDOM 100 mg/dL (70-110); SODIUM SERUM 143 mmol/L (136-145); UREA NITROGEN, BLOOD 7 mg/dL (7-18)
[2025-06-03 03:58] LABS: RBC MORPHOLOGY COMMENT ABNORMAL RBC MORPH
[2025-06-03 05:01] LABS: APPEARANCE,URINE CLEAR (CLEAR); GLUCOSE, URINE (UA) NEGATIVE (NEGATIVE); LEUKOCYTE ESTERASE ,URINE NEGATIVE (NEGATIVE); NITRATE,URINE NEGATIVE (NEGATIVE); OCCULT BLOOD,URINE NEGATIVE (NEGATIVE); PH,URINE DRUG SCREEN 5.5 (5.0-8.0); SPECIFIC GRAVITIY, URINE 1.007 (1.003-1.030)
[2025-06-03 05:08] LABS: AMPHET/METH SCREEN,URINE NEGATIVE (NEGATIVE); BARBITURATE SCREEN, URINE NEGATIVE (NEGATIVE); CANNABINOID SCREEN,URINE POSITIVE (NEGATIVE); COCAINE SCREEN,URINE NEGATIVE (NEGATIVE); METHADONE SCREEN, URINE NEGATIVE (NEGATIVE)
[2025-06-03 05:14] LABS: ALCOHOL, URINE DRUG SCREEN NEGATIVE (NEGATIVE)
[2025-06-03] MEDS: KETOROLAC TROMETHAMINE 30 MG/ML VIAL IVP ONE (05:18)
[2025-06-03 05:30] VITALS: BP 123/73; PULSE 62; RESP 15; O2SAT 95
[2025-06-03 06:13] LABS: PATHOLOGY REVIEW, DIFF YES
== END 2025-06-03 06:04 | disposition home or self-care (01) ==
LOC: EMS 00:35
DX: D57.00 Hb-SS disease with crisis, unspecified (principal); M79.604 Pain in right leg; M79.605 Pain in left leg; J45.909 Unspecified asthma, uncomplicated; Z79.64 Long term (current) use of myelosuppressive agent; Z79.01 Long term (current) use of anticoagulants; Z90.49 Acquired absence of other specified parts of digestive tract; Z86.718 Personal history of other venous thrombosis and embolism; Z88.8 Allergy status to other drugs, medicaments and biological substances
CPT/HCPCS: 99284; 96374; 96361; 96375; 71045; 80048; 84703; 85025; 85045; 36415; 96376; 80307; 81003; J1885; J1200; J1171; J7030